=== PATIENT | male | born 1930 | race Caucasian/White ===

== ENCOUNTER 2017-10-30 11:14 | Inpatient (IN) | payer MEDICARE ==
[~2017-10-30] VITALS: Ht 177.8 cm; Wt 76.8 kg
[2017-10-30] VITALS (7 sets, daily range): BP systolic 107–153; BP diastolic 56–114; PULSE 90–128; RESP 18–20; TEMP 97.4–99.2; O2SAT 93–98
[~2017-10-30 11:14] MED LIST: AVOD0.5C PO; CLOP75 PO; HYDR-2768 PO; LISI40TA PO; NOVO7030P2 SQ; ZOCO80TA PO
--- NOTE | 2017-10-30 11:53 | PD ---
HPI Chief Complaint: Neuro Symptoms/ Deficits Time Seen by Provider: 11:34 Travel History International Travel<30 days: No Contact w/Intl Traveler<30days: No Traveled to known affect area: No History of Present Illness HPI 87-year-old male that presents to the ED for evaluation of slurred speech, bearing to the left and weakness to his lower feet from the waist down since he woke up this morning around 830. Per caregiver patient went to bed normal yesterday and today he woke up like this. His been more lethargic and weak than usual. He has a history of osteomyelitis with a wound to his left foot and taking chronically antibiotics. He also takes Eliquis for cardiac conditions. He denies hitting his head or falling but per caregiver they are not sure as he been continue to bear to his left side and the believe that he might have fallen as he does have some bruising to his right side of his face. Patient himself states having only weakness to his lower legs. No history of CVA in the past. No fevers chills or sweats. No abdominal pain. No nausea or vomiting. Patient has been compliant with his medications. Caregiver is concerned the patient may be taking more of his hydrocodone and might be causing some of the symptoms. 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 Patient denies any headache. No blurry vision. His main concern is the lower leg numbness and weakness which of my evaluation seems to be just below the knee. Per caregiver patient is DNR. Patient does have a history of diabetes and hypertension and takes medications for both. Caregiver brought multiple medications. Apparently [facility] was contacted but the customer care team coach and patient prefered that the patient come here on private vehicle. PFSH Past Medical History Hx Anticoagulant Therapy: Yes (ELIQUIS) Cancer: No Cardiovascular Problems: Yes (CARDIOMYOPATHY, CHF, HTN) High Cholesterol: Yes COPD: Yes Diabetes: Yes (TYPE 2) Patient Takes Glucophage: No Glaucoma: No Hepatitis: No Hiatal Hernia: No Hypertension: Yes Respiratory: Yes (COPD) Thyroid Disease: No Past Surgical History Abdominal Surgery: Yes Cardiac Surgery: Yes (STENT) Cholecystectomy: Yes Ear Surgery: No Endocrine Surgery: No Eye Surgery: Yes Genitourinary Surgery: No Gynecologic Surgery: No Neurologic Surgery: No Oral Surgery: Yes Pacemaker: No Thoracic Surgery: No Other Surgery: Yes Social History Alcohol Use: No Tobacco Use: No Substance Use: No Allergies-Medications (Allergen,Severity, Reaction): Coded Allergies: No Known Allergies (Verified , 06/23/15) Reported Meds & Prescriptions Reported Meds & Active Scripts Active Review of Systems Except as stated in HPI: all other systems reviewed are Neg Physical Exam Narrative GENERAL: SKIN: Warm and dry. HEAD: Atraumatic. Normocephalic. EYES: Pupils equal and round 4 mm reactive to light and accommodation. No scleral icterus. No injection or drainage. ENT: No nasal bleeding or discharge. Mucous membranes pink and moist. Tongue is midline. No uvula deviation. NECK: Trachea midline. No JVD. CARDIOVASCULAR: Regular rate and rhythm. No murmurs, S3, S4. RESPIRATORY: No accessory muscle use. Clear to auscultation. Breath sounds equal bilaterally. GASTROINTESTINAL: Abdomen soft, non-tender, nondistended. Hepatic and splenic margins not palpable. MUSCULOSKELETAL: Extremities without clubbing, cyanosis, or edema. No obvious deformities. Full range of motion of the upper and lower extremities with exception of the feet. Patient cannot dorsiflex or plantarflex the feet bilaterally. Patient does have multiple surgical wounds to the feet bilaterally. Patient has a wound VAC on his left foot that appears to be draining fluid. No obvious lumbar, thoracic, cervical spine tenderness to palpation. Patient able to move the back with no sign of deformity. Patient able to have normal sensation on the tib-fib bilaterally. NEUROLOGICAL: Awake and alert. No obvious cranial nerve deficits. Motor grossly within normal limits. Five out of 5 muscle strength in the arms and legs. Normal speech. PSYCHIATRIC: Appropriate mood and affect; insight and judgment normal. Data Data Last Documented VS Vital Signs Date Time Temp Pulse Resp B/P (MAP) Pulse Ox O2 Delivery O2 Flow Rate FiO2 10/30/17 11:34 115 10/30/17 11:17 97.4 20 112/56 (74) 94 Orders Orders Complete Blood Count With Diff (10/30/17 11:35) Comprehensive Metabolic Panel (10/30/17 11:35) Ckmb (Isoenzyme) Profile (10/30/17 11:35) Troponin I (10/30/17 11:35) Prothrombin Time / Inr (Pt) (10/30/17 11:35) Act Partial Throm Time (Ptt) (10/30/17 11:35) Blood Culture (10/30/17 11:35) Urinalysis - C+S If Indicated (10/30/17 11:35) Magnesium (Mg) (10/30/17 11:35) Thyroid Stimulating Hormone (10/30/17 11:35) Chest, Single Ap (10/30/17 11:35) Ct Brain W/O Iv Contrast(Rout) (10/30/17 11:35) Iv Access Insert/Monitor (10/30/17 11:35) Ecg Monitoring (10/30/17 11:35) Oximetry (10/30/17 11:35) Lactic Acid Sepsis Protocol (10/30/17 11:36) Sodium Chlor 0.9% 1000 Ml Inj (Ns 1000 M (10/30/17 12:45) CKMB (10/30/17 11:45) CKMB% (10/30/17 11:45) Electrocardiogram (10/30/17 ) Ct Lumb Spine W/O Contrast (10/30/17 ) Aspirin (Aspirin) (10/30/17 13:00) Mra Brain W/O Contrast (Cow) (10/30/17 12:48) Mri Brain W/O Contrast (10/30/17 ) Sodium Chlorid 0.9% 500 Ml Inj (Ns 500 M (10/30/17 13:00) Admit To Inpatient (10/30/17 ) Nih Stroke Scale - Nihss .On admission and discharge (10/30/17 12:53) Neuro Checks Q4H (10/30/17 12:53) Notify Dr: Other (10/30/17 12:53) Consult Pt Eval & Treat (10/30/17 12:53) Case Management Consult (10/30/17 ) Activity Bed Rest (10/30/17 12:53) Nursing Bedside Swallow Assess .ONCE (10/30/17 12:53) Scd Bilateral/Knee High AARON.QSHIFT (10/30/17 12:53) Hemoglobin (Hgb) A1c (10/30/17 12:53) Lipid Profile (10/31/17 06:00) Us Carotid Arteries Comp Bilat (10/30/17 ) Holter Monitor Recording (10/30/17 ) Echo 2d Comp With Doppler (10/30/17 ) Resp Oxygen Nc Stroke (10/30/17 ) ^ Hold Medication (10/30/17 12:53) Sodium Chloride 0.9% Flush (Ns Flush) (10/30/17 21:00) Sodium Chloride 0.9% Flush (Ns Flush) (10/30/17 13:00) Enalaprilat Inj (Vasotec Inj) (10/30/17 13:00) Labetalol Inj (Trandate Inj) (10/30/17 13:00) Womens Volleyball Coach / Telemetry AARON.Q8H (10/30/17 12:53) Consult Stroke Navigator (10/30/17 ) Scd Bilateral/Knee High AARON.BID (10/30/17 12:53) Inpatient Certification (10/30/17 ) Sodium Chlor 0.9% 1000 Ml Inj (Ns 1000 M (10/30/17 13:00) Nitroglycerin Sl (Nitrostat Sl) (10/30/17 13:00) Creatine Kinase (Cpk) (10/30/17 18:00) Creatine Kinase (Cpk) (10/31/17 00:00) Troponin I (10/30/17 18:00) Troponin I (10/31/17 00:00) Magnesium (Mg) (10/30/17 12:58) Electrocardiogram (10/30/17 18:00) Electrocardiogram (10/31/17 00:00) Code Status (10/30/17 13:11) Admit Order (Ed Use Only) (10/30/17 13:12) Labs Laboratory Tests Test 10/30/17 11:45 10/30/17 12:50 White Blood Count 14.8 TH/MM3 Red Blood Count 3.70 MIL/MM3 Hemoglobin 9.5 GM/DL Hematocrit 29.6 % Mean Corpuscular Volume 80.0 FL Mean Corpuscular Hemoglobin 25.7 PG Mean Corpuscular Hemoglobin Concent 32.1 % Red Cell Distribution Width 16.7 % Platelet Count 322 TH/MM3 Mean Platelet Volume 7.3 FL Neutrophils (%) (Auto) 91.0 % Lymphocytes (%) (Auto) 3.4 % Monocytes (%) (Auto) 5.4 % Eosinophils (%) (Auto) 0.1 % Basophils (%) (Auto) 0.1 % Neutrophils # (Auto) 13.5 TH/MM3 Lymphocytes # (Auto) 0.5 TH/MM3 Monocytes # (Auto) 0.8 TH/MM3 Eosinophils # (Auto) 0.0 TH/MM3 Basophils # (Auto) 0.0 TH/MM3 CBC Comment DIFF FINAL Differential Comment Prothrombin Time 11.6 SEC Prothromb Time International Ratio 1.1 RATIO Activated Partial Thromboplast Time 28.2 SEC Blood Urea Nitrogen 40 MG/DL Creatinine 2.50 MG/DL Random Glucose 235 MG/DL Total Protein 6.5 GM/DL Albumin 2.7 GM/DL Calcium Level 9.3 MG/DL Magnesium Level 2.6 MG/DL Alkaline Phosphatase 138 U/L Aspartate Amino Transf (AST/SGOT) 36 U/L Alanine Aminotransferase (ALT/SGPT) 30 U/L Total Bilirubin 0.2 MG/DL Sodium Level 133 MEQ/L Potassium Level 5.3 MEQ/L Chloride Level 98 MEQ/L Carbon Dioxide Level 25.7 MEQ/L Anion Gap 9 MEQ/L Estimat Glomerular Filtration Rate 25 ML/MIN Total Creatine Kinase 143 U/L Creatine Kinase MB 5.0 NG/ML Troponin I 2.07 NG/ML Thyroid Stimulating Hormone 3rd Gen 3.400 uIU/ML Lactic Acid Level 2.9 mmol/L MDM Medical Decision Making Medical Screen Exam Complete: Yes Emergency Medical Condition: Yes Medical Record Reviewed: Yes Interpretation(s) CBC & BMP Diagram 10/30/17 11:45 Total Protein 6.5, Albumin 2.7 L, Calcium Level 9.3, Magnesium Level 2.6 H, Alkaline Phosphatase 138 H, Aspartate Amino Transf (AST/SGOT) 36, Alanine Aminotransferase (ALT/SGPT) 30, Total Bilirubin 0.2 troponin of 2 CK WNL Last Impressions Head CT 10/30/17 1135 Signed Impressions: CONCLUSION: 1. Stable CT scan of the brain compared to 2016. 2. No acute intracranial hemorrhage. EKG show atrial fibrillation with RVR in the 129's. Differential Diagnosis CVA versus ACS versus brain bleed versus fall versus weakness versus neuropathy versus sepsis versus metastasis of cancer Narrative Course 87-year-old male that presents to the ED for evaluation of weakness to his lower legs, slurred speech and veering to the left. Patient was properly examined and was found to have signs and symptoms of unclear etiology but definetly concerning for possible CVA. Timing is unknown as patient woke up with the symptoms. There is some clear patient did fail or not as patient does have some bruising to his right side of the face. Patient has no history of CVA in the past but does take Eliquis and has comorbidities for CVA including cancer, diabetes, hypertension and high cholesterol. At this time case was discussed my attending Dr. Bolden who does not recommend calling stroke alert but wants full CVA work up. Labs and imaging did not show any sign of acute CVA but did show what appears to be acute kidney disease, elevated troponin what appears to be A. fib with slight RVR in the 120s of heart rate. My attending himself evaluated the patient at this time recommends only aspirin. Patient already taken Eliquis. He recommends admission for further evaluation and likely MRI and TIA/stroke workup. This was discussed with the caregiver and patient and they both agree with admission. My attending discussed the case with customer care team coach and patient and believes symptoms might be more related to his new prescription of hydrocodone. Patient is neurovascularly intact in our evaluation other than for A. fib. Dr Reis agrees to admission. Diagnosis Primary Impression: Weakness Additional Impressions: Troponin level elevated Acute kidney injury Admitting Information Admitting Physician Requests: Admit Gonzalo Mg October 30, 2017 11:53
[2017-10-30 11:59] LABS: AUTOMATED NEUTROPHIL # 13.5 TH/MM3 (1.8-7.7); BASOPHIL % 0.1 % (0.0-2.0); EOSINOPHIL % 0.1 % (0.0-4.0); HEMATOCRIT 29.6 % (39.0-51.0); HEMOGLOBIN 9.5 GM/DL (13.0-17.0); LYMPH % 3.4 % (9.0-44.0); LYMPHOCYTE # 0.5 TH/MM3 (1.0-4.8); MEAN CORPUSCULAR HEMOGLOBIN 25.7 PG (27.0-34.0); MEAN CORPUSCULAR HGB CONC 32.1 % (32.0-36.0); MEAN PLATELET VOLUME 7.3 FL (7.0-11.0); MONO % 5.4 % (0.0-8.0); MONOCYTE # 0.8 TH/MM3 (0-0.9); PLATELET COUNT 322 TH/MM3 (150-450); RED CELL DISTRIBUTION WIDTH 16.7 % (11.6-17.2); WHITE BLOOD COUNT 14.8 TH/MM3 (4.0-11.0)
--- NOTE | 2017-10-30 12:08 | RADRPT ---
EXAM DATE: 10/30/2017 11:56 AM EDT AGE/SEX: 87 years / Male INDICATIONS: Weakness, altered mental status. CLINICAL DATA: This is the patient's initial encounter. Patient reports that signs and symptoms have been present for 1 day and indicates a pain score of 0/10. MEDICAL/SURGICAL HISTORY: Cardiovascular disease. Hypertension. Chronic obstructive pulmonary dis ease. Diabetes. . Coronary stents. RADIATION DOSE: 38.76 CTDI (mGy) COMPARISON: [facility], CT BRAIN W/O CONTRAST, 06/23/2015. . TECHNIQUE: CT of the head without contrast. Using automated exposure control and adjustment of the mA and/or kV according to patient size, radiation dose was kept as low as reasonably achievable to ob tain optimal diagnostic quality images. FINDINGS: Cerebrum: The ventricles are normal for age. There is stable bilateral cortical atrophy. No evidence of midline shift, mass lesion, hemorrhage or acute infarction. No extraaxial fluid collections are seen. Posterior Fossa: The cerebellum and brainstem are intact. The 4th ventricle is midline. The cerebe llopontine angle is unremarkable. Extracranial: The visualized portion of the orbits is intact. Skull: The calvaria is intact. No evidence of skull fracture. CONCLUSION: 1. Stable CT scan of the brain compared to 2016. 2. No acute intracranial hemorrhage. Electronically signed by: Roger Esquivel MD 10/30/2017 12:06 PM EDT
[2017-10-30 12:13] LABS: INTERNATIONAL NORMALIZED RATIO 1.1 RATIO; PROTHROMBIN TIME - PATIENT 11.6 SEC (9.8-11.6)
[2017-10-30 12:27] LABS: ALBUMIN 2.7 GM/DL (3.4-5.0); AST (GOT) 36 U/L (15-37); BICARBONATE 25.7 MEQ/L (21.0-32.0); BLOOD UREA NITROGEN 40 MG/DL (7-18); CALCIUM 9.3 MG/DL (8.5-10.1); CHLORIDE 98 MEQ/L (98-107); GLOMERULAR FILTRATION RATE 25 ML/MIN (>89); GLUCOSE,RANDOM 235 MG/DL (74-106); MAGNESIUM 2.6 MG/DL (1.5-2.5); SODIUM (NA) 133 MEQ/L (136-145)
[2017-10-30 12:38] LABS: ALKALINE PHOSPHATASE 138 U/L (45-117); ALT (GPT) 30 U/L (12-78); TOTAL BILIRUBIN ADULT 0.2 MG/DL (0.2-1.0); TOTAL PROTEIN 6.5 GM/DL (6.4-8.2)
[2017-10-30 12:40] LABS: TROPONIN I 2.07 NG/ML (0.02-0.05)
[2017-10-30] MEDS: SODIUM CHLOR 0.9% 1000 ML INJ 1,000 ML IV SCH ×3 (12:45→22:45)
--- NOTE | 2017-10-30 12:52 | RADRPT ---
EXAM DATE: 10/30/2017 12:34 PM EDT AGE/SEX: 87 years / Male INDICATIONS: Syncope CLINICAL DATA: This is the patient's initial encounter. Patient reports that signs and symptoms have been present for 1 day and indicates a pain score of 0/10. MEDICAL/SURGICAL HISTORY: Vertigo. None. COMPARISON: No prior [facility] exams available for comparison. FINDINGS: There is a platelike infiltrate in the right lower lung along with elevation of the right hemidiaphra gm. Otherwise, the lungs are grossly clear. No definite pleural effusions or pulmonary edema. The hea rt size is within normal limits. The bony structures are grossly intact. There are surgical clips in the right upper quadrant. CONCLUSION: 1. Platelike infiltrate in the right lower lung suggestive of atelectasis. 2. Nonspecific Elevation of the right hemidiaphragm. Electronically signed by: Roger Esquivel MD 10/30/2017 12:50 PM EDT
[2017-10-30] MEDS ORDERED: SODIUM CHLORID 0.9% 500 ML INJ 500 ML IV ONE (13:00)
[2017-10-30] MEDS ORDERED: NITROGLYCERIN 0.4 MG SL 25 TABS/BTL SL PRN (13:00)
[2017-10-30] MEDS ORDERED: ASPIRIN 325 MG TAB PO ONE (13:00)
[2017-10-30] MEDS ORDERED: ENALAPRILAT 1.25 MG/ML VIAL IV PUSH PRN (13:00)
[2017-10-30] MEDS ORDERED: LABETALOL HCL 100 MG/20 ML VIAL IV PUSH PRN (13:00)
[2017-10-30] MEDS ORDERED: SODIUM CHLORIDE 0.9% FLUSH 10 ML FLUSH IV FLUSH PRN (13:00)
[2017-10-30 13:18] LABS: LACTIC ACID SEPSIS PROTOCOL 2.9 mmol/L (0.4-2.0)
--- NOTE | 2017-10-30 13:56 | RADRPT ---
EXAM DATE: 10/30/2017 1:50 PM EDT AGE/SEX: 87 years / Male INDICATIONS: . Bilateral lower extremity weakness. CLINICAL DATA: This is the patient's initial encounter. Patient reports that signs and symptoms have been present for 1 day and indicates a pain score of 0/10. MEDICAL/SURGICAL HISTORY: Chronic obstructive pulmonary disease. Diabetes mellitus type II. H ypertension. Coronary artery stent. Cholecystectomy. Left foot toe amputations. COMPARISON: CT brain 10/30/2017. TECHNIQUE: Multiplanar, multisequence examination of the brain was performed without contrast. FINDINGS: Cerebrum: Atrophy. The ventricles are normal for age. No evidence of midline shift, mass lesion, he morrhage or acute infarction. No extraaxial fluid collections are seen. The pituitary gland and sup rasellar cistern are normal in configuration. White Matter: A few small scattered foci of high FLAIR signal abnormality involving the periventricu lar white matter of both cerebral hemispheres.. Posterior Fossa: The cerebellum and brainstem are intact. The 4th ventricle is midline. The cerebel lopontine angle is unremarkable. The cerebellar tonsils are normal in position. Diffusion Imaging: No focal areas of restricted diffusion are seen. No evidence of acute infarction . Extracranial: The visualized portions of the orbits and paranasal sinuses are unremarkable. Small mu cous retention cysts within the maxillary sinuses bilaterally. CONCLUSION: 1. No acute intracranial abnormality. 2. Atrophy. 3. Mild chronic small vessel ischemic change. Electronically signed by: Christopher Krause MD 10/30/2017 1:55 PM EDT
[2017-10-30] MEDS ORDERED: METF500T PO (14:04)
[2017-10-30] MEDS ORDERED: ESSE250T PO (14:04)
[2017-10-30] MEDS ORDERED: HYDR-3516 PO (14:04)
[2017-10-30] MEDS ORDERED: ASPI81TA16 PO (14:04)
[2017-10-30] MEDS ORDERED: MELA10TA4 PO (14:04)
[2017-10-30] MEDS ORDERED: APIX5TAB PO (14:04)
[2017-10-30] MEDS ORDERED: PROS5TAB PO (14:04)
[2017-10-30] MEDS ORDERED: CENTCHW3 PO (14:04)
[2017-10-30] MEDS ORDERED: AMAR2TAB PO (14:04)
[2017-10-30] MEDS ORDERED: GABA300C5 PO (14:04)
[2017-10-30] MEDS ORDERED: STOO100T PO (14:04)
[2017-10-30] MEDS ORDERED: LISI10TA3 PO (14:04)
[2017-10-30] MEDS ORDERED: CHEL50TA PO (14:04)
[2017-10-30] MEDS ORDERED: BACT800T5 PO (14:04)
[2017-10-30] MEDS ORDERED: METO100T PO (14:04)
[2017-10-30] MEDS ORDERED: CHRO200C PO (14:04)
[2017-10-30] MEDS ORDERED: RANI150T PO (14:04)
[2017-10-30] MEDS ORDERED: VITA100018 PO (14:04)
[2017-10-30] MEDS ORDERED: ISOS30TA3 PO (14:04)
[2017-10-30] MEDS ORDERED: PLAV75TA29 PO (14:04)
[2017-10-30] MEDS ORDERED: TAMS0.4C4 PO (14:04)
[2017-10-30] MEDS ORDERED: MULTTAB62 PO (14:04)
[2017-10-30] MEDS ORDERED: GABA100C4 PO (14:04)
--- NOTE | 2017-10-30 14:25 | HHI.HP ---
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 Patient presents to the ER with his caregiver Sammi Miranda due to concerns of bilateral lower extremity weakness, slurred speech which has resolved. Patient's complaint at this time is feeling fatigued with bilateral lower extremity weakness. Per caregiver patient went to bed normal yesterday and today he woke up with lower extremity weakness and slurred speech. He also appears to be more lethargic than usual. Patient has a history of osteomyelitis with a wound and wound vac to his left foot and taking chronically antibiotics, Bactrim. Patient was started on [place] for pain yesterday. He also takes Eliquis for atrial fibrillation/flutter. Per caregiver patient is DNR. Patient denies chest pain shortness of breath nausea vomiting diarrhea constipation fevers or chills. Review of Systems Constitutional: COMPLAINS OF: Fatigue Eyes: DENIES: Blurred vision, Diplopia, Vision loss Respiratory: DENIES: Cough, Sputum production, Shortness of breath Cardiovascular: DENIES: Chest pain, Palpitations, Dyspnea on Exertion Gastrointestinal: DENIES: Abdominal pain, Constipation, Diarrhea, Nausea, Vomiting Neurologic: DENIES: Headache, Seizures, Speech Problems Psychiatric: DENIES: Anxiety, Confusion, Depression Past Family Social History Past Medical History arthritis, atrial fibrillation/flutter on Eliquis, BPH, CAD status post cardiac stent, chronic kidney disease stage III, 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 currently has a wound VAC in place, chronic nonhealing wound right foot, diabetes mellitus, esophageal ulcer , GERD, hyperlipidemia and peripheral vascular disease Past Surgical History Cataract surgery, cardiac catheterization with stent placement, lithotripsy, EGD , tonsillectomy, resection left foot with wound VAC placement Reported Medications Ranitidine (Ranitidine HCl) 150 Mg Tab 150 Mg PO DAILY Metformin (Metformin HCl) 500 Mg Tab 500 Mg PO BID Zinc (Zinc Gluconate) 50 Mg Tab 50 Mg PO DAILY Tamsulosin (Tamsulosin HCl) 0.4 Mg Cap 0.4 Mg PO DAILY Metoprolol Tartrate 100 Mg Tab 50 Mg PO BID Isosorbide Mononitrate ER (Isosorbide Mononitrate) 30 Mg [place] 30 Mg PO DAILY Magnesium 250 Mg Tab 250 Mg PO DAILY Chromium Picolinate 200 Mcg Cap 200 Mg PO DAILY Eliquis (Apixaban) 5 Mg Tab 5 Mg PO BID Lisinopril 10 Mg Tab 10 Mg PO DAILY Stool Softener (Docusate Sodium) 100 Mg Tab 100 Mg PO DAILY PRN Multi-Vitamin/Minerals (Multiple Vitamins W/ Minerals) 1 Tab Tab 1 Tab PO DAILY Centrum Silver (Multiple Vitamins W/ Minerals) 400 Mcg-250 Mcg Chw 1 Tab PO DAILY Aspirin Adult Low Strength (Aspirin) 81 Mg Tabdr 81 Mg PO DAILY Amaryl (Glimepiride) 2 Mg Tab 2 Mg PO DAILY Gabapentin 100 Mg Cap 200 Mg PO TID Gabapentin 300 Mg Cap 300 Mg PO HS Hydrocodone-Acetaminophen 5-325 mg Tab 1 Tab PO Q6H PRN Proscar (Finasteride) 5 Mg Tab 5 Mg PO DAILY Do not crush. Melatonin 10 Mg Tablet 10 Mg PO HS PRN Bactrim DS (Sulfamethoxazole-Trimethoprim) 800-160 Mg Tab 1 Tab PO BID 10 Days Vitamin D3 (Cholecalciferol) 1,000 Unit Tab 2,000 Units PO DAILY Plavix (Clopidogrel Bisulfate) 75 Mg Tab 75 Mg PO DAILY Allergies: Coded Allergies: No Known Allergies (Verified , 06/23/15) Family History Reviewed and noncontributory Social History Has caregivers during the day Denies EtOH use tobacco use or illicit drug use Physical Exam Vital Signs Vital Signs Date Time Temp Pulse Resp B/P (MAP) Pulse Ox O2 Delivery O2 Flow Rate FiO2 10/30/17 11:34 115 10/30/17 11:17 97.4 90 20 112/56 (74) 94 Physical Exam GENERAL: This is an elderly 87-year-old male patient, in no apparent distress. SKIN: small Foul-smelling wound right foot, wound VAC left foot HEAD: Atraumatic. Normocephalic. No temporal or scalp tenderness. EYES: Extraocular motions intact. No scleral icterus. No injection or drainage. CARDIOVASCULAR: Irregularly irregular RESPIRATORY: Clear to auscultation. Breath sounds equal bilaterally. GASTROINTESTINAL: Abdomen soft, non-tender, nondistended. MUSCULOSKELETAL: 1+ bilateral lower extremity pitting edema NEUROLOGICAL: Awake and alert x 4. No focal deficits appreciated. Motor and sensory grossly within normal limits. Bilateral lower extremity weakness 3-4 out of 5. Normal speech. Laboratory Laboratory Tests Test 10/30/17 11:45 10/30/17 12:50 White Blood Count 14.8 Red Blood Count 3.70 Hemoglobin 9.5 Hematocrit 29.6 Mean Corpuscular Volume 80.0 Mean Corpuscular Hemoglobin 25.7 Mean Corpuscular Hemoglobin Concent 32.1 Red Cell Distribution Width 16.7 Platelet Count 322 Mean Platelet Volume 7.3 Neutrophils (%) (Auto) 91.0 Lymphocytes (%) (Auto) 3.4 Monocytes (%) (Auto) 5.4 Eosinophils (%) (Auto) 0.1 Basophils (%) (Auto) 0.1 Neutrophils # (Auto) 13.5 Lymphocytes # (Auto) 0.5 Monocytes # (Auto) 0.8 Eosinophils # (Auto) 0.0 Basophils # (Auto) 0.0 CBC Comment DIFF FINAL Differential Comment Prothrombin Time 11.6 Prothromb Time International Ratio 1.1 Activated Partial Thromboplast Time 28.2 Blood Urea Nitrogen 40 Creatinine 2.50 Random Glucose 235 Total Protein 6.5 Albumin 2.7 Calcium Level 9.3 Magnesium Level 2.6 Alkaline Phosphatase 138 Aspartate Amino Transf (AST/SGOT) 36 Alanine Aminotransferase (ALT/SGPT) 30 Total Bilirubin 0.2 Sodium Level 133 Potassium Level 5.3 Chloride Level 98 Carbon Dioxide Level 25.7 Anion Gap 9 Estimat Glomerular Filtration Rate 25 Total Creatine Kinase 143 Creatine Kinase MB 5.0 Troponin I 2.07 Thyroid Stimulating Hormone 3rd Gen 3.400 Lactic Acid Level 2.9 Date/Time Source Procedure Growth Status 10/30/17 12:05 Blood Peripheral Aerobic Blood Culture Pending Received 10/30/17 12:05 Blood Peripheral Anaerobic Blood Culture Pending Received Result Diagram: 10/30/17 1145 10/30/17 1145 Imaging Last Impressions Head CT 10/30/17 1135 Signed Impressions: CONCLUSION: 1. Stable CT scan of the brain compared to 2016. 2. No acute intracranial hemorrhage. Chest X-Ray 10/30/17 1135 Signed Impressions: CONCLUSION: 1. Platelike infiltrate in the right lower lung suggestive of atelectasis. 2. Nonspecific Elevation of the right hemidiaphragm. Brain MRI 10/30/17 0000 Signed Impressions: CONCLUSION: 1. No acute intracranial abnormality. 2. Atrophy. 3. Mild chronic small vessel ischemic change. Caprini VTE Risk Assessment Caprini VTE Risk Assessment: Mod/High Risk (score >= 2) Caprini Risk Assessment Model Point Value = 1 Point Value = 2 Point Value = 3 Point Value = 5 Age 41-60 Minor surgery BMI > 25 kg/m2 Swollen legs Varicose veins or History of unexplained or recurrent spontaneous Oral contraceptives or hormone replacement Sepsis (< 1 month) Serious lung disease, including pneumonia (< 1 month) Abnormal pulmonary function Acute myocardial infarction Congestive heart failure (< 1 month) History of inflammatory bowel disease Medical patient at bed rest Age 61-74 Arthroscopic surgery Major open surgery (> 45 min) Laparoscopic surgery (> 45 min) Malignancy Confined to bed (> 72 hours) Immobilizing plaster cast Central venous access Age >= 75 History of VTE Family history of VTE Factor V Leiden Prothrombin [id number] Lupus anticoagulant Anticardiolipin antibodies Elevated serum homocysteine Heparin-induced thrombocytopenia Other congenital or acquired thrombophilia Stroke (< 1 month) Elective arthroplasty Hip, pelvis, or leg fracture Acute spinal cord injury (< 1 month) Prophylaxis Regimen Total Risk Factor Score Risk Level Prophylaxis Regimen 0-1 Low Early ambulation 2 Moderate Order ONE of the following: *Sequential Compression Device (SCD) *Heparin 5000 units SQ BID 3-4 Higher Order ONE of the following medications: *Heparin 5000 units SQ TID *Enoxaparin/Lovenox 40 mg SQ daily (WT < 150 kg, CrCl > 30 mL/min) *Enoxaparin/Lovenox 30 mg SQ daily (WT < 150 kg, CrCl > 10-29 mL/min) *Enoxaparin/Lovenox 30 mg SQ BID (WT < 150 kg, CrCl > 30 mL/min) AND/OR *Sequential Compression Device (SCD) 5 or more Highest Order ONE of the following medications: *Heparin 5000 units SQ TID (Preferred with Epidurals) *Enoxaparin/Lovenox 40 mg SQ daily (WT < 150 kg, CrCl > 30 mL/min) *Enoxaparin/Lovenox 30 mg SQ daily (WT < 150 kg, CrCl > 10-29 mL/min) *Enoxaparin/Lovenox 30 mg SQ BID (WT < 150 kg, CrCl > 30 mL/min) AND *Sequential Compression Device (SCD) Assessment and Plan Problem List: (1) Weakness ICD Codes: R53.1 - Weakness Status: Acute Plan: This 87-year-old male patient with past medical history which includes arthritis, atrial fibrillation/flutter on Eliquis, BPH, CAD status post cardiac stent, chronic kidney disease stage III, 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 Patient presents to the ER with his caregiver Sammi Miranda due to concerns of bilateral lower extremity weakness, slurred speech which has resolved. -Per caregiver patient is a DNR, I have requested her to bring proof of this -Per caregiver Sammi Chiang she is POA, I have also asked for her to bring proof of this -Patient has bilateral lower extremity edema after starting hydrocodone yesterday -CT head reviewed and reveals stable CT of the brain compared to 2006. No acute intracranial hemorrhage -MRI of the brain reviewed and reveals no acute intracranial abnormality. Atrophy. Mild chronic small vessel ischemic changes. -Consult physical therapy (2) Acute kidney injury ICD Codes: N17.9 - Acute kidney failure, unspecified Status: Acute Plan: Patient with chronic kidney disease stage III On admission patient's BUN 40, creatinine 2.5, estimated GFR 25 IVF recheck BMP in AM avoid nephrotoxic agents (3) Troponin level elevated ICD Codes: R74.8 - Abnormal levels of other serum enzymes Status: Acute Plan: Patient has history of CAD with cardiac stent Initial troponin 2.[address] segment depression which appears new compared to prior EKGs reviewed from 2016 Telemetry shows Afib with RVR. Last SBP 112. Pt refuses any aggressive Cardiac w/u. Pt states that he a DNR. Pt requests hospice consult. (4) Atrial fibrillation/flutter Plan: Patient in A Fib RVR with hypotension and ROBERTO Digoxin 0.5 MG IV x 1 Dig level in AM (5) BPH (benign prostatic hyperplasia) ICD Codes: N40.0 - Benign prostatic hyperplasia without lower urinary tract symptoms Plan: Hold home medications due to hypotension (6) Diabetes mellitus ICD Codes: E11.9 - Type 2 diabetes mellitus without complications Plan: Patient on Metformin and glimepiride at home will hold both due to ROBERTO Patient expresses desire to be comfort care only Hospice consulted will not order accu checks at this time (7) Leukocytosis ICD Codes: D72.829 - Elevated white blood cell count, unspecified Plan: On admission WBC 14.8 LA 2.9 CXR Shows Platelike infiltrate in the right lower lobe suggestive of atelectasis Patient has wound vac left lower extremity and nonhealing wound which is foul smelling RLE Will start Zosyn IVF recheck CBC in AM Assessment and Plan Patient examined. Assessment and plan formulated with Mara Trevino PA-C. I agree with the above. Pt in obvious decline. Pt does NOT want aggressive care. Pt states that he a DNR. Pt c/o generalized weakness. Pt denies focal weakness. Pt is A&Ox3. MRI brain (10/30) --> no acute findings MRA brain (10/30) --> no acute findings Pt requests hospice consult. Will continue IVFs/fluid bolus. Telemetry shows Afib with RVR. Last SBP 110. Give digoxin 0.5mg IV elevated troponin EKG shows diffuse ST segment depression which appears new compared to prior EKGs reviewed from 2016 Pt refuses any aggressive Cardiac w/u. start IV Zosyn morphine prn pain ativan prn anxiety. Physician Certification 2 Midnight Certification Type: Admission for Inpatient Services Order for Inpatient Services The services are ordered in accordance with Medicare regulations or non- Medicare payer requirements, as applicable. In the case of services not specified as inpatient-only, they are appropriately provided as inpatient services in accordance with the 2-midnight benchmark. Estimated LOS (days): 3 days is the estimated time the patient will need to remain in the hospital, assuming treatment plan goals are met and no additional complications. Post-Hospital Plan: Not yet determined Mara Trevino October 30, 2017 14:25 Remi Reis DO October 30, 2017 17:58
--- NOTE | 2017-10-30 14:38 | RADRPT ---
EXAM DATE: 10/30/2017 2:17 PM EDT AGE/SEX: 87 years / Male INDICATIONS: . Bilateral lower extremity weakness. CLINICAL DATA: This is the patient's initial encounter. Patient reports that signs and symptoms have been present for 1 day and indicates a pain score of 0/10. MEDICAL/SURGICAL HISTORY: Hypertension. Diabetes mellitus type II. Chronic obstructive pulmon ani disease. Coronary artery stent. Cholecystectomy. Left foot toe amputations. COMPARISON: None. TECHNIQUE: 3D [id number] MRA was performed. Source images, multiplanar STS MIP, and 3D volum e MIP reconstructions were reviewed. FINDINGS: There is excellent visualization of the major intracranial arteries out to the second-order branch ve ssels. Variant anatomy. Absence of the right A1 segment with a dominant left A1 segment and anterior communicating artery. Scattered atherosclerotic disease seen throughout the intracranial vessels. Hig h-grade stenosis involving the left P1 segment. Moderate stenosis involving the proximal right M1. Mo derate stenoses involving the intracavernous ICA on the right. Mild stenosis involving the intracaver nous ICA on the left. There is no evidence for aneurysm or vascular malformation. CONCLUSION: 1. Diffuse atherosclerotic disease with areas of luminal narrowing as detailed above. Electronically signed by: Christopher Krause MD 10/30/2017 2:36 PM EDT
--- NOTE | 2017-10-30 16:36 | EKG ---
Date Performed: 10/30/2017 Time Performed: 12:47:08 PTAGE: 87 years EKG: ATRIAL FIBRILLATION WITH RAPID VENTRICULAR RESPONSE LOW QRS VOLTAGE IN EXTREMITY LEADS NONS PECIFIC ST & T-WAVE ABNORMALITY ABNORMAL RHYTHM ECG PREVIOUS TRACING : 06/23/2015 16.24 Compared to previous tracing, atrial fibrillation has repla corey Sinus rhythm , heart rate has increased. DOCTOR: Gulshan Drummond Interpretating Date/Time 10/30/2017 16:34:42
[2017-10-30] MEDS ORDERED: DIGOXIN 0.5 MG/2 ML VIAL IV PUSH ONE ×2 (18:00→23:45)
[2017-10-30] MEDS ORDERED: DOCUSATE SODIUM 100 MG CAP PO PRN (18:00)
[2017-10-30] MEDS: PIPERACIL-TAZO 3.375 GM PREMIX 50 ML IV SCH (18:39)
--- NOTE | 2017-10-30 19:13 | EKG ---
Date Performed: 10/30/2017 Time Performed: 17:26:00 PTAGE: 87 years EKG: ATRIAL FIBRILLATION WITH RAPID VENTRICULAR RESPONSE LOW QRS VOLTAGE IN EXTREMITY LEADS ST D EPRESSION, CONSIDER INFERIOR AND LATERAL ISCHEMIA ABNORMAL ECG PREVIOUS TRACING : 10/30/2017 12.47 No change from previous tracing noted. DOCTOR: Gulshan Drummond Interpretating Date/Time 10/30/2017 19:13:13
[2017-10-30] MEDS: SODIUM CHLORIDE 0.9% FLUSH 10 ML FLUSH IV FLUSH SCH (21:00)
[2017-10-30] MEDS: APIXABAN 2.5 MG TABLET PO SCH (21:35)
[2017-10-30 22:05] LABS: MAGNESIUM 2.5 MG/DL (1.5-2.5)
[2017-10-30 22:24] LABS: CALCIUM 8.8 MG/DL (8.5-10.1); CREATININE 2.47 MG/DL (0.60-1.30)
[2017-10-30 22:38] LABS: TROPONIN I 10.7 NG/ML (0.02-0.05)
--- NOTE | 2017-10-30 23:32 | HHI.PR ---
Subjective Remarks Called to see patient for elevated troponin level 7 from earlier level of 2 , patient is DNR with multiple co morbidities and hospice has been consulted ,he is not complaining of any chest pain ,shortness of breath and both patient and hearing care professional just want patient to be comfortable and in no pain. 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 Patient presents to the ER with his caregiver Sammi Miranda due to concerns of bilateral lower extremity weakness, slurred speech which has resolved. Patient' s complaint at this time is feeling fatigued with bilateral lower extremity weakness. Per caregiver patient went to bed normal yesterday and today he woke up with lower extremity weakness and slurred speech. He also appears to be more lethargic than usual. Patient has a history of osteomyelitis with a wound and wound vac will continue comfort measures tonight with hospice consult discussed with nursing. Objective Vitals GENERAL: SKIN: Warm and dry. HEAD: Atraumatic. Normocephalic. EYES: Pupils equal and round. No scleral icterus. No injection or drainage. ENT: No nasal bleeding or discharge. Mucous membranes pink and moist. NECK: Trachea midline. No JVD. CARDIOVASCULAR:Irregular rate and rhythm. RESPIRATORY: No accessory muscle use. Clear to auscultation. Breath sounds equal bilaterally. GASTROINTESTINAL: Abdomen soft, non-tender, nondistended. Hepatic and splenic margins not palpable. MUSCULOSKELETAL: Extremities without clubbing, cyanosis, plus 3 edema. No obvious deformities. NEUROLOGICAL: Awake and alert. No obvious cranial nerve deficits. Motor grossly within normal limits. 3 out of 5 muscle strength in the arms and legs. Normal speech. was slurred yesterday PSYCHIATRIC: Appropriate mood and affect; insight and judgment normal. Vital Signs Date Time Temp Pulse Resp B/P (MAP) Pulse Ox O2 Delivery O2 Flow Rate FiO2 10/30/17 22:52 99.2 121 18 107/67 (80) 98 10/30/17 20:33 98 Nasal Cannula 2.00 10/30/17 17:39 Nasal Cannula 2.00 10/30/17 15:41 98.4 128 20 153/114 (127) 93 10/30/17 14:30 98 Nasal Cannula 2.00 10/30/17 11:34 115 10/30/17 11:17 97.4 90 20 112/56 (74) 94 Result Diagram: 10/30/17 1145 10/30/17 2040 Imaging Last Impressions Head CT 10/30/17 1135 Signed Impressions: CONCLUSION: 1. Stable CT scan of the brain compared to 2016. 2. No acute intracranial hemorrhage. Chest X-Ray 10/30/17 1135 Signed Impressions: CONCLUSION: 1. Platelike infiltrate in the right lower lung suggestive of atelectasis. 2. Nonspecific Elevation of the right hemidiaphragm. Brain MRI 10/30/17 0000 Signed Impressions: CONCLUSION: 1. No acute intracranial abnormality. 2. Atrophy. 3. Mild chronic small vessel ischemic change. 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 Patient presents to the ER with his caregiver Sammi Miranda due to concerns of bilateral lower extremity weakness, slurred speech which has resolved. -Per caregiver patient is a DNR, I have requested her to bring proof of this -Per caregiver Sammi Chiang she is POA, I have also asked for her to bring proof of this -Patient has bilateral lower extremity edema after starting hydrocodone yesterday -CT head reviewed and reveals stable CT of the brain compared to 2006. No acute intracranial hemorrhage -MRI of the brain reviewed and reveals no acute intracranial abnormality. Atrophy. Mild chronic small vessel ischemic changes. -Consult physical therapy (2) Acute kidney injury ICD Codes: N17.9 - Acute kidney failure, unspecified Status: Acute Plan: Patient with chronic kidney disease stage III On admission patient's BUN 40, creatinine 2.5, estimated GFR 25 IVF recheck BMP in AM avoid nephrotoxic agents (3) Troponin level elevated ICD Codes: R74.8 - Abnormal levels of other serum enzymes Status: Acute Plan: Patient has history of CAD with cardiac stent Initial troponin 2.[address] segment depression which appears new compared to prior EKGs reviewed from 2016 Telemetry shows Afib with RVR. Last SBP 112. Pt refuses any aggressive Cardiac w/u. Pt states that he a DNR. Pt requests hospice consult. (4) Atrial fibrillation/flutter Plan: Patient in A Fib RVR with hypotension and ROBERTO Digoxin 0.5 MG IV x 1 Dig level in AM heart rate has gone to 130 will give digoxin prn for any elevation in heart rate as it did help earlier today. (5) BPH (benign prostatic hyperplasia) ICD Codes: N40.0 - Benign prostatic hyperplasia without lower urinary tract symptoms Plan: Hold home medications due to hypotension (6) Diabetes mellitus ICD Codes: E11.9 - Type 2 diabetes mellitus without complications Plan: Patient on Metformin and glimepiride at home will hold both due to ROBERTO Patient expresses desire to be comfort care only Hospice consulted will not order accu checks at this time (7) Leukocytosis ICD Codes: D72.829 - Elevated white blood cell count, unspecified Plan: On admission WBC 14.8 LA 2.9 CXR Shows Platelike infiltrate in the right lower lobe suggestive of atelectasis Patient has wound vac left lower extremity and nonhealing wound which is foul smelling RLE Will start Zosyn IVF recheck CBC in AM Assessment and Plan supportive care hospice consult continue morphine and oxygen as needed Ruiz Pineda MD October 30, 2017 23:32
[2017-10-30] MEDS ORDERED: IBUPROFEN 200 MG TAB PO ONE (23:45)
[2017-10-31] VITALS (9 sets, daily range): BP systolic 99–144; BP diastolic 57–96; PULSE 98–138; RESP 17–20; TEMP 98.1–98.4; O2SAT 97–100
[2017-10-31] MEDS: LORazepam 2 MG/ML VIAL IV PUSH PRN (00:21)
[2017-10-31] MEDS: MORPHINE SULFATE 4 MG/ML INJ IV PUSH PRN ×3 (00:22→23:25)
[2017-10-31] MEDS: PIPERACIL-TAZO 3.375 GM PREMIX 50 ML IV SCH ×3 (01:00→17:10)
[2017-10-31] MEDS: SODIUM CHLOR 0.9% 1000 ML INJ 1,000 ML IV SCH ×5 (01:01→17:18)
[2017-10-31 05:20] LABS: AUTOMATED NEUTROPHIL # 8.7 TH/MM3 (1.8-7.7); BASOPHIL % 0.4 % (0.0-2.0); EOSINOPHIL # 0.1 TH/MM3 (0-0.4); EOSINOPHIL % 0.9 % (0.0-4.0); HEMATOCRIT 26.8 % (39.0-51.0); HEMOGLOBIN 8.8 GM/DL (13.0-17.0); MEAN CELL VOLUME 79.1 FL (80.0-100.0); MEAN CORPUSCULAR HGB CONC 32.9 % (32.0-36.0); MEAN PLATELET VOLUME 7.4 FL (7.0-11.0); MONO % 8.4 % (0.0-8.0); MONOCYTE # 0.9 TH/MM3 (0-0.9); NEUT % 81.3 % (16.0-70.0); PLATELET COUNT 288 TH/MM3 (150-450); RED BLOOD COUNT 3.39 MIL/MM3 (4.50-5.90); RED CELL DISTRIBUTION WIDTH 16.9 % (11.6-17.2); WHITE BLOOD COUNT 10.7 TH/MM3 (4.0-11.0)
[2017-10-31 05:44] LABS: BICARBONATE 24.9 MEQ/L (21.0-32.0); CALCIUM 8.3 MG/DL (8.5-10.1); CREATININE 2.25 MG/DL (0.60-1.30); MAGNESIUM 2.5 MG/DL (1.5-2.5)
[2017-10-31 05:48] LABS: CHOLESTEROL/ HDL RATIO 2.8 RATIO
[2017-10-31 05:54] LABS: TROPONIN I 14.2 NG/ML (0.02-0.05)
--- NOTE | 2017-10-31 08:05 | EKG ---
Date Performed: 10/30/2017 Time Performed: 23:14:30 PTAGE: 87 years EKG: Atrial fibrillation with rapid ventricular response Extensive ST-T changes are nonspecific Baseline artefact Abnormal ECG NO PREVIOUS TRACING DOCTOR: Gulshan Drummond Interpretating Date/Time 10/31/2017 08:04:03
[2017-10-31] MEDS: APIXABAN 2.5 MG TABLET PO SCH ×2 (08:24→20:27)
[2017-10-31] MEDS: ASPIRIN 325 MG TAB PO SCH (08:24)
[2017-10-31] MEDS: CLOPIDOGREL 75 MG TAB PO SCH (08:24)
[2017-10-31] MEDS: ISOSORBIDE MONONITRATE 30 MG CR TAB (IMDUR) PO SCH (08:24)
[2017-10-31] MEDS: FAMOTIDINE 20 MG TAB PO SCH (08:24)
[2017-10-31] MEDS: SODIUM CHLORIDE 0.9% FLUSH 10 ML FLUSH IV FLUSH SCH ×2 (08:25→20:27)
[2017-10-31] MEDS ORDERED: TAMSULOSIN HCL 0.4 MG CAP PO SCH (09:00)
--- NOTE | 2017-10-31 09:25 | HHI.PR ---
Subjective Remarks pt appeared comfortable. says he wants comfort care nothing aggressive Objective Vitals heart irreg lung cta abd s/nt ext left heel wound feet swollen bilaterally 2 toes amputated right foot. Vital Signs Date Time Temp Pulse Resp B/P (MAP) Pulse Ox O2 Delivery O2 Flow Rate FiO2 10/31/17 08:06 98.4 124 18 101/69 (80) 100 10/31/17 08:00 Nasal Cannula 2.00 10/31/17 04:08 122 10/31/17 03:47 98.1 110 18 119/76 (90) 97 10/30/17 23:59 119 10/30/17 22:52 99.2 121 18 107/67 (80) 98 10/30/17 20:33 98 Nasal Cannula 2.00 10/30/17 20:30 Nasal Cannula 2.00 10/30/17 20:12 124 10/30/17 17:39 Nasal Cannula 2.00 10/30/17 15:41 98.4 128 20 153/114 (127) 93 10/30/17 14:30 98 Nasal Cannula 2.00 10/30/17 11:34 115 10/30/17 11:17 97.4 90 20 112/56 (74) 94 Result Diagram: 10/31/17 0340 10/31/17 0340 Imaging Last Impressions Head CT 10/30/17 1135 Signed Impressions: CONCLUSION: 1. Stable CT scan of the brain compared to 2016. 2. No acute intracranial hemorrhage. Chest X-Ray 10/30/17 1135 Signed Impressions: CONCLUSION: 1. Platelike infiltrate in the right lower lung suggestive of atelectasis. 2. Nonspecific Elevation of the right hemidiaphragm. Brain MRI 10/30/17 0000 Signed Impressions: CONCLUSION: 1. No acute intracranial abnormality. 2. Atrophy. 3. Mild chronic small vessel ischemic change. 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 Patient presents to the ER with his caregiver Sammi Miranda due to concerns of bilateral lower extremity weakness, slurred speech which has resolved. -Per caregiver patient is a DNR -Per caregiver Sammi Chiang she is POA, -Patient has bilateral lower extremity edema after starting hydrocodone yesterday -CT head reviewed and reveals stable CT of the brain compared to 2006. No acute intracranial hemorrhage -MRI of the brain reviewed and reveals no acute intracranial abnormality. Atrophy. Mild chronic small vessel ischemic changes. 1) ACS 2) A/CKD 3 3) chronic heel wounds/osteo. wound vac left 4) afib/flutter rvr 5) cad 6) dm 2 Patient and caregiver expressed with for dnr, no cardiac w/up, comfort care and hospice consult will await hospice eval today and [facility] d/c cont current rx for now. (2) Acute kidney injury ICD Codes: N17.9 - Acute kidney failure, unspecified Status: Acute (3) Atrial fibrillation/flutter Status: Acute (4) BPH (benign prostatic hyperplasia) ICD Codes: N40.0 - Benign prostatic hyperplasia without lower urinary tract symptoms Status: Chronic Plan: Hold home medications due to hypotension (5) Diabetes mellitus ICD Codes: E11.9 - Type 2 diabetes mellitus without complications Status: Chronic (6) Leukocytosis ICD Codes: D72.829 - Elevated white blood cell count, unspecified Plan: On admission WBC 14.8 LA 2.9 CXR Shows Platelike infiltrate in the right lower lobe suggestive of atelectasis Patient has wound vac left lower extremity and nonhealing wound which is foul smelling RLE Will start Zosyn IVF recheck CBC in AM Nicolas Guerra MD October 31, 2017 09:25
[2017-10-31] MEDS ORDERED: PNEUMOCOCCAL POLYVALENT INJ 25 MCG/0.5 ML SYR IM ONE (10:00)
--- NOTE | 2017-10-31 12:12 | RADRPT ---
EXAM DATE: 10/31/2017 11:51 AM EDT AGE/SEX: 87 years / Male INDICATIONS: Cerebrovascular accident. CLINICAL DATA: This is the patient's initial encounter. Patient reports that signs and symptoms have been present for 1 day and indicates a pain score of 0/10. MEDICAL/SURGICAL HISTORY: . COPD. Diabetic. Hypertension. . Coronary stent. Cholecystectomy . Left foot/toe amputation. COMPARISON: No prior [facility] exams available for comparison. VELOCITY PARAMETERS: ICA/CCA Ratio: Right 1.5 , Left 1.7 ICA: Right 122 cm/sec, Left 117 cm/sec CCA: Right 83 cm/sec, Left 68 cm/sec ECA: Right 163 cm/sec, Left 44 cm/sec Vertebral: Right 48 cm/sec antegrade, Left 53 cm/sec antegrade FINDINGS: Right Carotid: No significant stenosis is visualized. Moderate plaque. The waveforms are within nor mal limits. Left Carotid: No significant stenosis is visualized. Moderate plaque. The waveforms are within laila l limits. Other: None. CONCLUSION: Moderate plaque without hemodynamic significant stenosis in either carotid artery. Electronically signed by: Bayron Kunz MD 10/31/2017 12:11 PM EDT
--- NOTE | 2017-10-31 15:43 | HHI.DCPOC ---
Discharge Care Plan Diagnosis: (1) Weakness (2) Troponin level elevated (3) Acute kidney injury (4) Leukocytosis (5) Diabetes mellitus (6) Atrial fibrillation/flutter (7) BPH (benign prostatic hyperplasia) Goals to Promote Your Health * To prevent worsening of your condition and complications * To maintain your health at the optimal level Directions to Meet Your Goals Take your medications as prescribed Follow your dietary instruction Follow activity as directed Keep your appointments as scheduled Take your immunizations and boosters as scheduled If your symptoms worsen call your PCP, if no PCP go to Urgent Care Center or Emergency Room Smoking is Dangerous to Your Health. Avoid second hand smoke Call the 24-hour hour crisis hotline for domestic abuse at Mara Trevino October 31, 2017 15:43
--- NOTE | 2017-10-31 15:47 | HHI.DS ---
Discharge Summary Admission Date October 30, 2017 at 13:14 Discharge Date: November 01, 2017 Admitting Diagnosis leg weakness, CVA r/o, positive troponin, ROBERTO (1) ACS (acute coronary syndrome) ICD Codes: I24.9 - Acute ischemic heart disease, unspecified Status: Acute (2) Acute kidney injury ICD Codes: N17.9 - Acute kidney failure, unspecified Status: Acute (3) Atrial fibrillation/flutter Status: Acute (4) BPH (benign prostatic hyperplasia) ICD Codes: N40.0 - Benign prostatic hyperplasia without lower urinary tract symptoms Status: Chronic (5) Diabetes mellitus ICD Codes: E11.9 - Type 2 diabetes mellitus without complications Status: Chronic (6) Leukocytosis ICD Codes: D72.829 - Elevated white blood cell count, unspecified Consultants Hospice Procedures None Brief History This 87-year-old male patient with past medical history which includes arthritis , atrial fibrillation/flutter on Eliquis, BPH, CAD status post cardiac stent, chronic kidney disease stage III, 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 Patient presents to the ER with his caregiver Sammi Miranda due to concerns of bilateral lower extremity weakness, slurred speech which has resolved. Patient's complaint at this time is feeling fatigued with bilateral lower extremity weakness. Per caregiver patient went to bed normal yesterday and today he woke up with lower extremity weakness and slurred speech. He also appears to be more lethargic than usual. Patient has a history of osteomyelitis with a wound and wound vac to his left foot and taking chronically antibiotics, Bactrim. Patient was started on [place] for pain yesterday. He also takes Eliquis for atrial fibrillation/flutter. Per caregiver patient is DNR. Patient denies chest pain shortness of breath nausea vomiting diarrhea constipation fevers or chills. CBC/BMP: 10/31/17 0340 10/31/17 0340 Significant Findings Laboratory Tests Test 10/30/17 11:45 10/30/17 12:50 10/30/17 12:53 10/30/17 16:15 White Blood Count 14.8 TH/MM3 (4.0-11.0) Red Blood Count 3.70 MIL/MM3 (4.50-5.90) Hemoglobin 9.5 GM/DL (13.0-17.0) Hematocrit 29.6 % (39.0-51.0) Mean Corpuscular Hemoglobin 25.7 PG (27.0-34.0) Neutrophils (%) (Auto) 91.0 % (16.0-70.0) Lymphocytes (%) (Auto) 3.4 % (9.0-44.0) Neutrophils # (Auto) 13.5 TH/MM3 (1.8-7.7) Lymphocytes # (Auto) 0.5 TH/MM3 (1.0-4.8) Blood Urea Nitrogen 40 MG/DL (7-18) Creatinine 2.50 MG/DL (0.60-1.30) Random Glucose 235 MG/DL (74-106) Albumin 2.7 GM/DL (3.4-5.0) Magnesium Level 2.6 MG/DL (1.5-2.5) Alkaline Phosphatase 138 U/L (45-117) Sodium Level 133 MEQ/L (136-145) Potassium Level 5.3 MEQ/L (3.5-5.1) Estimat Glomerular Filtration Rate 25 ML/MIN (>89) Creatine Kinase MB 5.0 NG/ML (0.5-3.6) Troponin I 2.07 NG/ML (0.02-0.05) Lactic Acid Level 2.9 mmol/L (0.4-2.0) 2.9 mmol/L (0.4-2.0) Test 10/30/17 20:40 10/31/17 03:40 Blood Urea Nitrogen 42 MG/DL (7-18) 39 MG/DL (7-18) Creatinine 2.47 MG/DL (0.60-1.30) 2.25 MG/DL (0.60-1.30) Random Glucose 218 MG/DL (74-106) 149 MG/DL (74-106) Sodium Level 135 MEQ/L (136-145) 135 MEQ/L (136-145) Potassium Level 5.2 MEQ/L (3.5-5.1) Estimat Glomerular Filtration Rate 25 ML/MIN (>89) 28 ML/MIN (>89) Troponin I 10.70 NG/ML (0.02-0.05) 14.20 NG/ML (0.02-0.05) Red Blood Count 3.39 MIL/MM3 (4.50-5.90) Hemoglobin 8.8 GM/DL (13.0-17.0) Hematocrit 26.8 % (39.0-51.0) Mean Corpuscular Volume 79.1 FL (80.0-100.0) Mean Corpuscular Hemoglobin 26.0 PG (27.0-34.0) Neutrophils (%) (Auto) 81.3 % (16.0-70.0) Monocytes (%) (Auto) 8.4 % (0.0-8.0) Neutrophils # (Auto) 8.7 TH/MM3 (1.8-7.7) Calcium Level 8.3 MG/DL (8.5-10.1) Cholesterol Level 98 MG/DL (120-200) HDL Cholesterol 35.0 MG/DL (40.0-60.0) Imaging Last Impressions Carotid Artery Ultrasound 10/31/17 0000 Signed Impressions: CONCLUSION: Moderate plaque without hemodynamic significant stenosis in either carotid wilder ry. Head Magnetic Resonance Angiography 10/30/17 1248 Signed Impressions: CONCLUSION: 1. Diffuse atherosclerotic disease with areas of luminal narrowing as detailed above. Head CT 10/30/17 113 Signed Impressions: CONCLUSION: 1. Stable CT scan of the brain compared to 2016. 2. No acute intracranial hemorrhage. Chest X-Ray 10/30/17 113 Signed Impressions: CONCLUSION: 1. Platelike infiltrate in the right lower lung suggestive of atelectasis. 2. Nonspecific Elevation of the right hemidiaphragm. Brain MRI 10/30/17 0000 Signed Impressions: CONCLUSION: 1. No acute intracranial abnormality. 2. Atrophy. 3. Mild chronic small vessel ischemic change. Hospital Course 1) ACS 2) A/CKD 3 3) chronic heel wounds/osteo. 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 Patient presents to the ER with his caregiver Sammi [place] due to concerns of bilateral lower extremity weakness, slurred speech which has resolved. -Per caregiver patient is a DNR -Per caregiver Sammi Cihang she is POA, -Patient has bilateral lower extremity edema after starting hydrocodone yesterday -CT head reviewed and reveals stable CT of the brain compared to 2006. No acute intracranial hemorrhage -MRI of the brain reviewed and reveals no acute intracranial abnormality. Atrophy. Mild chronic small vessel ischemic changes. -On admission WBC 14.8 -LA 2.9 -CXR Shows Platelike infiltrate in the right lower lobe suggestive of atelectasis -Patient has wound vac left lower extremity and nonhealing wound which is foul smelling RLE -Will start Zosyn -IVF -Patient and caregiver expressed DNR, they do not want further cardiac w/up, comfort care and hospice consult -Patient and caregiver met with Hospice - Plan to DC patient home with hospice -further medication, wound care and follow ups per Hospice Pt Condition on Discharge: Deteriorating Discharge Disposition: Hospice/ Home Discharge Instructions DIET: Follow Instructions for: As Tolerated, No Restrictions Activities you can perform: Weight Bearing as Ian Additional Information Further medications, wound care and follow ups per Hospice Mara Trevino October 31, 2017 15:47
[2017-10-31] MEDS: COLLAGENASE OINT 30 GM TUBE TOPICAL SCH (21:00)
[2017-10-31 22:22] LABS: HEMOGLOBIN A1C 8.2 % (4.3-6.0)
[2017-10-31] MEDS: METOPROLOL TARTRATE 25 MG TAB PO SCH (23:24)
[2017-11-01] VITALS (11 sets, daily range): BP systolic 113–149; BP diastolic 59–87; PULSE 87–130; RESP 17–20; TEMP 97.5–98.8; O2SAT 95–100
[2017-11-01] MEDS: SODIUM CHLOR 0.9% 1000 ML INJ 1,000 ML IV SCH ×3 (00:45→06:20)
[2017-11-01] MEDS: PIPERACIL-TAZO 3.375 GM PREMIX 50 ML IV SCH (01:36)
[2017-11-01] MEDS: LORazepam 2 MG/ML VIAL IV PUSH PRN ×3 (01:36→11:24)
[2017-11-01] MEDS: MORPHINE SULFATE 4 MG/ML INJ IV PUSH PRN ×2 (04:40→14:55)
[2017-11-01] MEDS: METOPROLOL TARTRATE 25 MG TAB PO SCH ×3 (05:26→21:35)
[2017-11-01] MEDS: CLOPIDOGREL 75 MG TAB PO SCH (09:00)
[2017-11-01] MEDS: APIXABAN 2.5 MG TABLET PO SCH ×2 (09:00→21:34)
[2017-11-01] MEDS: FAMOTIDINE 20 MG TAB PO SCH (09:00)
[2017-11-01] MEDS: ISOSORBIDE MONONITRATE 30 MG CR TAB (IMDUR) PO SCH (09:00)
[2017-11-01] MEDS: ASPIRIN 325 MG TAB PO SCH (09:00)
[2017-11-01] MEDS: SODIUM CHLORIDE 0.9% FLUSH 10 ML FLUSH IV FLUSH SCH ×2 (09:00→21:35)
[2017-11-01] MEDS: PIPERACIL-TAZO 2.25 GM PREMIX 50 ML IV SCH ×3 (10:00→21:34)
[2017-11-01] MEDS ORDERED: PIPERACIL-TAZO 2.25 GM PREMIX 50 ML IV SCH ×2 (10:00→10:15)
--- NOTE | 2017-11-01 10:04 | HHI.PR ---
Subjective Remarks comfortable Objective Vitals heart irreg lung cta abd s/nt ext heel wounds Vital Signs Date Time Temp Pulse Resp B/P (MAP) Pulse Ox O2 Delivery O2 Flow Rate FiO2 11/01/17 08:00 98.8 92 20 113/73 (86) 100 11/01/17 01:54 96 11/01/17 00:51 101 11/01/17 00:02 130 11/01/17 00:00 Nasal Cannula 2.00 11/01/17 00:00 98.1 129 20 127/60 (82) 96 10/31/17 20:00 Nasal Cannula 2.00 10/31/17 20:00 98.3 138 20 144/96 (112) 100 10/31/17 19:49 131 10/31/17 16:06 98.1 107 17 129/60 (83) 100 10/31/17 12:06 98.1 98 17 99/57 (71) 100 Result Diagram: 10/31/17 0340 10/31/17 0340 Imaging Last Impressions Head CT 10/30/17 1135 Signed Impressions: CONCLUSION: 1. Stable CT scan of the brain compared to 2016. 2. No acute intracranial hemorrhage. Chest X-Ray 10/30/17 1135 Signed Impressions: CONCLUSION: 1. Platelike infiltrate in the right lower lung suggestive of atelectasis. 2. Nonspecific Elevation of the right hemidiaphragm. Brain MRI 10/30/17 0000 Signed Impressions: CONCLUSION: 1. No acute intracranial abnormality. 2. Atrophy. 3. Mild chronic small vessel ischemic change. 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 Patient presents to the ER with his caregiver Sammi Ruben due to concerns of bilateral lower extremity weakness, slurred speech which has resolved. -Per caregiver patient is a DNR -Per caregiver Sammi Chiang she is POA, -Patient has bilateral lower extremity edema after starting hydrocodone yesterday -CT head reviewed and reveals stable CT of the brain compared to 2006. No acute intracranial hemorrhage -MRI of the brain reviewed and reveals no acute intracranial abnormality. Atrophy. Mild chronic small vessel ischemic changes. 1) ACS 2) A/CKD 3 3) chronic heel wounds/osteo. wound vac left 4) afib/flutter rvr 5) cad 6) dm 2 Patient and caregiver expressed with for dnr, no cardiac w/up, comfort care and hospice consult Discussed with Merary from [facility]ice. [facility]. POA would like home with hospice d/c orders written (2) Acute kidney injury ICD Codes: N17.9 - Acute kidney failure, unspecified Status: Acute (3) Atrial fibrillation/flutter Status: Acute (4) BPH (benign prostatic hyperplasia) ICD Codes: N40.0 - Benign prostatic hyperplasia without lower urinary tract symptoms Status: Chronic Plan: Hold home medications due to hypotension (5) Diabetes mellitus ICD Codes: E11.9 - Type 2 diabetes mellitus without complications Status: Chronic (6) Leukocytosis ICD Codes: D72.829 - Elevated white blood cell count, unspecified Plan: On admission WBC 14.8 LA 2.9 CXR Shows Platelike infiltrate in the right lower lobe suggestive of atelectasis Patient has wound vac left lower extremity and nonhealing wound which is foul smelling RLE Will start Zosyn IVF recheck CBC in AM Nicolas Guerra MD November 01, 2017 10:04
[2017-11-01] MEDS ORDERED: DEXTROSE 50% IN WATER 50 ML VIAL(D50) IV PUSH PRN (14:15)
[2017-11-01] MEDS ORDERED: RESP: ALBUTEROL 2.5 MG/IPRATROPIUM 0.5 MG NEB (PRN) NEB (14:15)
[2017-11-01] MEDS ORDERED: GLUCAGON 1 MG/ML VIAL OTHER PRN (14:15)
--- NOTE | 2017-11-01 14:54 | PD.CONS ---
Consult Service Palliative Care . Consult Requested By Dr. Guerra . Primary Care Physician Sampson Kim MD . Reason for Consultation a. To assist with evaluation and management of symptoms including: pain b. To assist medical decision maker(s) with: better understanding of current medical conditions; weighing benefits/burdens of medical treatment options; making medical treatment decisions. . HPI History of Present Illness Mr. Rodgers is an 87-year-old male patient with arthritis, atrial fibrillation on Eliquis, BPD, CAD s/p cardiac stent, hypertension, chronic kidney disease, chronic nonhealing wounds, osteomyelitis, diabetes, esophageal ulcer,, GERD hyperlipidemia and peripheral vascular disease who presented to [facility] ED on for evaluation of bilateral lower extremity weakness and slurred speech. Patient's caregiver reportedly the patient has been more lethargic and weaker than usual. 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 He also takes Eliquis for a cardiac condition. Additional diagnostic data includes: * Vital signs: Pulse 90, respirations 20, BP 112/56, oxygen saturation 94% on room air, oral temperature 97.4 * WBC: 14.8, hemoglobin 9.5, hematocrit 29.6, platelets 322, neutrophils 91.0% * Sodium: 133, potassium 5.3, chloride 98, carbon dioxide 25.7, glucose 235, calcium 9.3, magnesium 2.6 * BUN: 40, creatinine 2.50, GFR 25 * Hemoglobin A1c: 8.2 * Total bilirubin: 0.2, AST 36, ALT 30, alkaline phosphatase 138 * Total creatine kinase 143 * CK-MB 5.0 * Troponin: 2.07 * Total protein: 6.5, albumin 2.7 * Lactic acid: 2.9 * PT: 11.6, INR 1.1, APTT 28.2 * Blood cultures growing gram-negative coccobacilli; gram-positive rods and gram -positive cocci. * Chest x-ray showed platelike infiltrate in the left lower lung suggestive of atelectasis * CT head was negative for acute process * EKG showing diffuse ST segment depression which appears new compared to prior EKGs reviewed from 2016 On exam, patient shows some signs and symptoms that are concerning for possible CVA. Timeline was unknown as the patient woke up with slurred speech and bilateral lower extremity weakness. It is unclear if the patient may have fallen; bruising is noted to the right side of his face. Patient has no history of previous CVA but he does take Eliquis and has comorbid conditions such as diabetes, hypertension and high cholesterol that would put him at high risk for a CVA. Lab work and imaging did not show evidence of acute CVA. Patient was admitted for further evaluation.VA. = MRI brain showed no acute intracranial abnormality; atrophy; mild chronic small vessel ischemic change. = MRA of the brain showed diffuse atherosclerotic disease with areas of luminal narrowing. Patient is a DNR and has a living will. Sammi Miranda is the designated healthcare surrogate decision maker. Initially, the patient/caregiver expressed comfort focus goals stating they did not want further diagnostic procedures. Hospice was consulted and met with the patient/caregiver. Patient was not enrolled with hospice; caregiver now stating she wishes to optimize the current hospitalization and may consider hospice services at discharge. Wound care, podiatry and cardiology consults are pending. Palliative Care was consulted to assist with symptom management and to discuss with the family the benefits and burdens of his current illnesses and the options regarding future care. . 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 He has home health nursing as well. Sammi Miranda is the patient's designated healthcare surrogate decision maker and she assist to manage his healthcare. Per review of EMR, patient has been nonambulatory since December,. . Review of Systems ROS Limitations: Altered Mental Status, Poor Historian, Other (ROS obtained through report and review of medical records.) Constitutional: COMPLAINS OF: Pain (BLE), Generalized weakness Eyes: COMPLAINS OF: Vision loss (reported by Sammi Miranda) Ears, nose, mouth, throat: COMPLAINS OF: Hearing loss (reported by Sammi Miranda) Cardiovascular: COMPLAINS OF: Lower Extremity Edema Hematologic/Lymphatics: COMPLAINS OF: Bruising Psychiatric: COMPLAINS OF: Confusion Past Family Social History Coded Allergies: No Known Allergies (Verified , 06/23/15) Past Medical History Arthritis Atrial fibrillation/flutter on Eliquis BPH Coronary artery disease status post cardiac stent Chronic kidney disease, stage III Chronic non-healing decubitus ulceration with osteomyelitis on the left heel Chronic nonhealing wounds right foot Diabetes Esophageal ulcer GERD Hyperlipidemia Peripheral vascular disease . Past Surgical History Cataract surgery Cardiac catheterization with stent placement Lithotripsy EGD Tonsillectomy Resection left foot wound with wound VAC placement . Reported Medications Ranitidine (Ranitidine HCl) 150 Mg Tab 150 Mg PO DAILY Metformin (Metformin HCl) 500 Mg Tab 500 Mg PO BID Zinc (Zinc Gluconate) 50 Mg Tab 50 Mg PO DAILY Tamsulosin (Tamsulosin HCl) 0.4 Mg Cap 0.4 Mg PO DAILY Metoprolol Tartrate 100 Mg Tab 50 Mg PO BID Isosorbide Mononitrate ER (Isosorbide Mononitrate) 30 Mg Viktoria 30 Mg PO DAILY Magnesium 250 Mg Tab 250 Mg PO DAILY Chromium Picolinate 200 Mcg Cap 200 Mg PO DAILY Eliquis (Apixaban) 5 Mg Tab 5 Mg PO BID Lisinopril 10 Mg Tab 10 Mg PO DAILY Stool Softener (Docusate Sodium) 100 Mg Tab 100 Mg PO DAILY PRN Multi-Vitamin/Minerals (Multiple Vitamins W/ Minerals) 1 Tab Tab 1 Tab PO DAILY Centrum Silver (Multiple Vitamins W/ Minerals) 400 Mcg-250 Mcg Chw 1 Tab PO DAILY Aspirin Adult Low Strength (Aspirin) 81 Mg Tabdr 81 Mg PO DAILY Amaryl (Glimepiride) 2 Mg Tab 2 Mg PO DAILY Gabapentin 100 Mg Cap 200 Mg PO TID Gabapentin 300 Mg Cap 300 Mg PO HS Hydrocodone-Acetaminophen 5-325 mg Tab 1 Tab PO Q6H PRN Proscar (Finasteride) 5 Mg Tab 5 Mg PO DAILY Do not crush. Melatonin 10 Mg Tablet 10 Mg PO HS PRN Bactrim DS (Sulfamethoxazole-Trimethoprim) 800-160 Mg Tab 1 Tab PO BID 10 Days Vitamin D3 (Cholecalciferol) 1,000 Unit Tab 2,000 Units PO DAILY Plavix (Clopidogrel Bisulfate) 75 Mg Tab 75 Mg PO DAILY . Current Medications Medications (Trade) Dose Ordered Sig/Dominic Route Start Time Stop Time Status Last Admin Sodium Chloride 1,000 ml @ 100 mls/hr Q10H IV 10/30/17 12:45 10/31/17 17:18 (NS Flush) 2 ml BID IV FLUSH 10/30/17 21:00 (NS Flush) 2 ml UNSCH PRN IV FLUSH 10/30/17 13:00 10/30/17 13:08 (Vasotec Inj) 1.25 mg Q4H PRN IV PUSH 10/30/17 13:00 (Trandate Inj) 10 mg Q2H PRN IV PUSH 10/30/17 13:00 Sodium Chloride 1,000 ml @ 75 mls/hr [id number] IV 10/30/17 13:00 11/01/17 06:20 (Nitrostat Sl) 0.4 mg Q5M PRN SL 10/30/17 13:00 (Aspirin) 325 mg DAILY PO 10/31/17 09:00 10/31/17 08:24 (Eliquis) 2.5 mg BID PO 10/30/17 21:00 10/31/17 20:27 (Plavix) 75 mg DAILY PO 10/31/17 09:00 10/31/17 08:24 (Imdur) 30 mg DAILY PO 10/31/17 09:00 10/31/17 08:24 (Colace) 100 mg DAILY PRN PO 10/30/17 18:00 (Pepcid) 20 mg DAILY PO 10/31/17 09:00 10/31/17 08:24 (Ativan Inj) 1 mg Q4H PRN IV PUSH 10/30/17 18:00 11/01/17 11:24 (Lopressor) 25 mg Q8HR PO 10/31/17 22:00 11/01/17 05:26 Piperacillin Sod/ Tazobactam Sod 50 ml @ 100 mls/hr Q6H IV 11/01/17 10:00 (Morphine Inj) 2 mg Q2HR PRN IV PUSH 11/01/17 11:15 (D50w (Vial) Inj) 50 ml UNSCH PRN IV PUSH 11/01/17 14:15 UNV (Glucagon Inj) 1 mg UNSCH PRN OTHER 11/01/17 14:15 UNV (NovoLOG SUPPLEMENTAL SCALE) 1 ACHS SLIDING SCALE SQ 11/01/17 17:00 UNV (Duoneb Neb) 1 ampule Q2HR NEB PRN NEB 11/01/17 14:15 UNV . Family History Pending further discussion with family or caregiver. . Substance Use Tobacco: None known Alcohol: None known Prescription med abuse: None known Illicits: None known . Psychosocial History Patient was born in [place]. He moved to the [place] when he was [age] years old. Patient served in the [employer] in [place]. He has traveled "all over the world." Patient speaks Turkmen, Frisian and Lithuanian. . Spiritual/Cultural Factors Agnostic . Living Will: Copy in medical record Health Care Surrogate: Copy in medical record Date completed: 06/13/2017 . Health Care Surrogate(s): Patient designated Sammi Chiang as his healthcare surrogate decision maker. . Documented care wishes: A living will was completed on 05/20/2017 and is accessible in the patient's paper chart as well as the EMR. A [facility] DO NOT RESUSCITATE order was completed on 10/31/2017. . Today's verbally stated goals: Given patient clinical condition, he was unable to assist in the establishment medical treatment goals. . Family/friends goals: Sammi states she would like to optimize her current hospitalization. She does not wish to pursue further diagnostic procedures or aggressive interventions. She may consider hospice services at discharge when the patient is medically stable. . Ethical and Legal Issues No known ethical or legal issues at this time. . Physical Exam Vital Signs Date Time Temp Pulse Resp B/P (MAP) Pulse Ox O2 Delivery O2 Flow Rate FiO2 11/01/17 12:00 97.5 127 20 140/78 (98) 100 11/01/17 10:17 96 Nasal Cannula 2.00 11/01/17 08:00 98.8 92 20 113/73 (86) 100 11/01/17 08:00 108 11/01/17 07:00 Nasal Cannula 2.00 11/01/17 01:54 96 11/01/17 00:51 101 11/01/17 00:02 130 11/01/17 00:00 Nasal Cannula 2.00 11/01/17 00:00 98.1 129 20 127/60 (82) 96 10/31/17 20:00 Nasal Cannula 2.00 10/31/17 20:00 98.3 138 20 144/96 (112) 100 10/31/17 19:49 131 10/31/17 16:06 98.1 107 17 129/60 (83) 100 . Exam CONSTITUTIONAL/GENERAL: This is a frail, elderly male patient in no acute distress. TUBES/LINES/DRAINS: PIV 1, nasal cannula SKIN: Ecchymoses on upper extremities. Wounds on heels bilaterally. Skin temperature appropriate. Not diaphoretic. HEAD: Atraumatic. Normocephalic. EYES: Pupils equal and round and reactive. Extraocular motions intact. No scleral icterus. No injection or drainage. Fundi not examined. ENT:[place]. Nose without bleeding or purulent drainage. Throat without visible erythema, exudates, masses, or lesions. NECK: Trachea midline. Supple, nontender. No palpable thyroid enlargement or nodularity. CARDIOVASCULAR: Regular rate and rhythm without murmurs, gallops, or rubs. No JVD. Peripheral pulses symmetric. RESPIRATORY/CHEST: No accessory muscle use. Clear to auscultation. Breath sounds equal bilaterally. GASTROINTESTINAL: Abdomen soft, non-tender, nondistended. No guarding. Bowel sounds present. GENITOURINARY: Without palpable bladder distension. MUSCULOSKELETAL: No joint tenderness or effusion noted. No calf tenderness. Bilateral heels with dressings dry and intact LYMPHATICS: No palpable cervical or supraclavicular adenopathy. NEUROLOGICAL: Lethargic. Patient arouses only briefly to persistent verbal stimuli. PSYCHIATRIC: No obvious anxiety/depression. No apparent hallucinations or other psychotic thought process. . Diagnostic Tests Laboratory Laboratory Tests Test 10/30/17 11:45 10/30/17 12:50 10/30/17 16:15 10/30/17 20:40 White Blood Count 14.8 TH/MM3 (4.0-11.0) Red Blood Count 3.70 MIL/MM3 (4.50-5.90) Hemoglobin 9.5 GM/DL (13.0-17.0) Hematocrit 29.6 % (39.0-51.0) Mean Corpuscular Volume 80.0 FL (80.0-100.0) Mean Corpuscular Hemoglobin 25.7 PG (27.0-34.0) Mean Corpuscular Hemoglobin Concent 32.1 % (32.0-36.0) Red Cell Distribution Width 16.7 % (11.6-17.2) Platelet Count 322 TH/MM3 (150-450) Mean Platelet Volume 7.3 FL (7.0-11.0) Neutrophils (%) (Auto) 91.0 % (16.0-70.0) Lymphocytes (%) (Auto) 3.4 % (9.0-44.0) Monocytes (%) (Auto) 5.4 % (0.0-8.0) Eosinophils (%) (Auto) 0.1 % (0.0-4.0) Basophils (%) (Auto) 0.1 % (0.0-2.0) Neutrophils # (Auto) 13.5 TH/MM3 (1.8-7.7) Lymphocytes # (Auto) 0.5 TH/MM3 (1.0-4.8) Monocytes # (Auto) 0.8 TH/MM3 (0-0.9) Eosinophils # (Auto) 0.0 TH/MM3 (0-0.4) Basophils # (Auto) 0.0 TH/MM3 (0-0.2) CBC Comment DIFF FINAL Differential Comment Prothrombin Time 11.6 SEC (9.8-11.6) Prothromb Time International Ratio 1.1 RATIO Activated Partial Thromboplast Time 28.2 SEC (24.3-30.1) Blood Urea Nitrogen 40 MG/DL (7-18) 42 MG/DL (7-18) Creatinine 2.50 MG/DL (0.60-1.30) 2.47 MG/DL (0.60-1.30) Random Glucose 235 MG/DL (74-106) 218 MG/DL (74-106) Total Protein 6.5 GM/DL (6.4-8.2) Albumin 2.7 GM/DL (3.4-5.0) Calcium Level 9.3 MG/DL (8.5-10.1) 8.8 MG/DL (8.5-10.1) Magnesium Level 2.6 MG/DL (1.5-2.5) 2.5 MG/DL (1.5-2.5) Alkaline Phosphatase 138 U/L (45-117) Aspartate Amino Transf (AST/SGOT) 36 U/L (15-37) Alanine Aminotransferase (ALT/SGPT) 30 U/L (12-78) Total Bilirubin 0.2 MG/DL (0.2-1.0) Sodium Level 133 MEQ/L (136-145) 135 MEQ/L (136-145) Potassium Level 5.3 MEQ/L (3.5-5.1) 5.2 MEQ/L (3.5-5.1) Chloride Level 98 MEQ/L (98-107) 100 MEQ/L (98-107) Carbon Dioxide Level 25.7 MEQ/L (21.0-32.0) 25.0 MEQ/L (21.0-32.0) Anion Gap 9 MEQ/L (5-15) 10 MEQ/L (5-15) Estimat Glomerular Filtration Rate 25 ML/MIN (>89) 25 ML/MIN (>89) Hemoglobin A1c 8.2 % (4.3-6.0) Total Creatine Kinase 143 U/L (39-308) 210 U/L (39-308) Creatine Kinase MB 5.0 NG/ML (0.5-3.6) Troponin I 2.07 NG/ML (0.02-0.05) 10.70 NG/ML (0.02-0.05) Thyroid Stimulating Hormone 3rd Gen 3.400 uIU/ML (0.358-3.740) Lactic Acid Level 2.9 mmol/L (0.4-2.0) 2.9 mmol/L (0.4-2.0) Test 10/31/17 03:40 White Blood Count 10.7 TH/MM3 (4.0-11.0) Red Blood Count 3.39 MIL/MM3 (4.50-5.90) Hemoglobin 8.8 GM/DL (13.0-17.0) Hematocrit 26.8 % (39.0-51.0) Mean Corpuscular Volume 79.1 FL (80.0-100.0) Mean Corpuscular Hemoglobin 26.0 PG (27.0-34.0) Mean Corpuscular Hemoglobin Concent 32.9 % (32.0-36.0) Red Cell Distribution Width 16.9 % (11.6-17.2) Platelet Count 288 TH/MM3 (150-450) Mean Platelet Volume 7.4 FL (7.0-11.0) Neutrophils (%) (Auto) 81.3 % (16.0-70.0) Lymphocytes (%) (Auto) 9.0 % (9.0-44.0) Monocytes (%) (Auto) 8.4 % (0.0-8.0) Eosinophils (%) (Auto) 0.9 % (0.0-4.0) Basophils (%) (Auto) 0.4 % (0.0-2.0) Neutrophils # (Auto) 8.7 TH/MM3 (1.8-7.7) Lymphocytes # (Auto) 1.0 TH/MM3 (1.0-4.8) Monocytes # (Auto) 0.9 TH/MM3 (0-0.9) Eosinophils # (Auto) 0.1 TH/MM3 (0-0.4) Basophils # (Auto) 0.0 TH/MM3 (0-0.2) CBC Comment DIFF FINAL Differential Comment Blood Urea Nitrogen 39 MG/DL (7-18) Creatinine 2.25 MG/DL (0.60-1.30) Random Glucose 149 MG/DL (74-106) Calcium Level 8.3 MG/DL (8.5-10.1) Magnesium Level 2.5 MG/DL (1.5-2.5) Sodium Level 135 MEQ/L (136-145) Potassium Level 4.9 MEQ/L (3.5-5.1) Chloride Level 101 MEQ/L (98-107) Carbon Dioxide Level 24.9 MEQ/L (21.0-32.0) Anion Gap 9 MEQ/L (5-15) Estimat Glomerular Filtration Rate 28 ML/MIN (>89) Total Creatine Kinase 221 U/L (39-308) Troponin I 14.20 NG/ML (0.02-0.05) Triglycerides Level 113 MG/DL (42-150) Cholesterol Level 98 MG/DL (120-200) LDL Cholesterol 40 MG/DL (0-99) HDL Cholesterol 35.0 MG/DL (40.0-60.0) Cholesterol/HDL Ratio 2.80 RATIO . Result Diagram: 10/31/17 0340 10/31/17 0340 Microbiology Microbiology Date/Time Source Procedure Growth Status 10/30/17 12:05 Blood Peripheral Aerobic Blood Culture - Preliminary NO GROWTH IN 2 DAYS Resulted 10/30/17 12:05 Anaerobic Blood Culture - Preliminary Proteus Species Pleomorphic Gram Positive Rods Staph Sp Coagulase Negative Resulted 10/30/17 12:00 Blood Peripheral Aerobic Blood Culture - Preliminary NO GROWTH IN 2 DAYS Resulted 10/30/17 12:00 Anaerobic Blood Culture - Preliminary Gram Negative Coccobacilli Pleomorphic Gram Positive Rods Gram Positive Cocci Resulted . Imaging Last 72 hours Impressions Carotid Artery Ultrasound 10/31/17 0000 Signed Impressions: CONCLUSION: Moderate plaque without hemodynamic significant stenosis in either carotid wilder ry. Head Magnetic Resonance Angiography 10/30/17 1248 Signed Impressions: CONCLUSION: 1. Diffuse atherosclerotic disease with areas of luminal narrowing as detailed above. Head CT 10/30/175 Signed Impressions: CONCLUSION: 1. Stable CT scan of the brain compared to 2016. 2. No acute intracranial hemorrhage. Chest X-Ray 10/30/17 1135 Signed Impressions: CONCLUSION: 1. Platelike infiltrate in the right lower lung suggestive of atelectasis. 2. Nonspecific Elevation of the right hemidiaphragm. Brain MRI 10/30/17 0000 Signed Impressions: CONCLUSION: 1. No acute intracranial abnormality. 2. Atrophy. 3. Mild chronic small vessel ischemic change. . Patient/Family Conference Present at Family Conference: Met patient at bedside; spoke to patient's HCS (Sammi Ruben) via telephone. . Family Conference Location: Bedside, Telephone Issues Discussed: DRAFT.. * Palliative care role, purpose, approach * Additional medical, psychosocial, and spiritual history * Patients general health, functional status, and cognitive changes in the months leading up to the current hospitalization * Patient/family understanding of the current medical problems * Patient/family understanding of prognosis * Patients goals of care as best understood from advance directives and/or conversations and/or values * Current medical treatment options and benefits/burdens of those options * Likely scenarios comparing ongoing aggressive care with a transition to comfort measures only * Questions answered to the best of my ability * Palliative care contact information provided . Assessment and Plan Disease Oriented Problem List: (1) Troponin level elevated (2) Acute kidney injury (3) Hyperlipidemia (4) Leukocytosis (5) ACS (acute coronary syndrome) (6) Diabetes mellitus (7) Atrial fibrillation/flutter (8) BPH (benign prostatic hyperplasia) Symptom Scale: (1) Pain 0-10 Scale: Unable to quantify Pertinent Non-Medical Issues Psychosocial: Patient was born in [place]. He moved to the [place] when he was [age] years old. Patient served in the [employer] in [place]. He has traveled "all over the world." Patient speaks Turkmen, Frisian and Lithuanian. Spiritual: Agnostic Legal: Patient designated Sammi Chiang as his healthcare surrogate decision maker. Additionally, a living will and a community DNR are in place. Ethical issues impacting care: No known ethical issues impacting care at this time. . Important Contacts Sammi Miranda, niece: [phone] . Prognosis Patient is a severely debilitated 87-year-old male currently hospitalized with acute coronary syndrome and CKD status post an STEMI. Patient has a history of osteomyelitis with a wound on his left foot and is on long-term antibiotics; recommendations have been made for a BKA. Patient is a poor candidate for any type of aggressive intervention. He is requesting hospice services for symptom management and end-of-life care which is appropriate as the patient's life expectancy is likely less than 6 months. . Code Status: No Code Plan * NO CODE * Decision-making: Patient currently showing limited insight and judgment related to his medical conditions; it is unclear if the patient will regain capacity for medical decision-making. He has designated Sammi Chiang as his healthcare surrogate decision maker. * A living will was completed on 05/20/2017 and is accessible in the patient's paper chart as well as the EMR. A [facility] DO NOT RESUSCITATE order was completed on 10/31/2017. * GOALS: Optimize her current hospitalization. Patient/CG not wish to pursue further diagnostic procedures or aggressive interventions. May consider hospice services at a later date. when the patient is medically stable. * Patient discussed with nurse (Mayela) and PA Trevino (Kim). * Symptom management-pain: Multifactoral. Patient has a history of osteomyelitis with a wound on his left foot and has been on long-term antibiotics. Additional contributing factors include coronary artery disease, infection, invasive lines etc. Morphine is available 2mg IV every 2 hours PRN for pain. Patient has received 2 doses in the past 24 hours. Palliative care will continue to monitor PRN requirements and make recommendations as appropriate. * Palliative care will continue to follow this patient throughout his hospitalization to establish stress, assist with symptom management and clarification of medical treatment goals. . Thank you for the opportunity to participate in the care of Mr. Gil. GarciaSenait Samuel LIU November 01, 2017 14:54
--- NOTE | 2017-11-01 16:59 | PD.WCN.NOT ---
Wound Consult Description: Received consult for wound management of L heel wound with wound VAC and R foot ulceration Communicated with: RN Mayela atkins and Mara DUMONT for Doctor Guerra Recommendation: 1.Please consult podiatry for wound to L heel possible and R lateral foot ulcer for possible debridement. 2. Please cleanse wound to L heel with normal saline and pat dry. 3.Apply Santyl ointment to Dakin's 0.125% moistened gauze packed in wound bed and cover with dry gauze and ABD pad. 4. Secure dressing with rolled gauze and tape. Change dressing daily or until seen by podiatry and podiatry writes their wound care orders. 5. Cleanse wound to R lateral foot with normal saline and at pat dry. Apply Santyl to wound bed and cover with dry gauze, rolled gauze and tape. Change dressing daily or until seen by podiatry and podiatry writes their wound care orders. 6. Please float bilateral heels off mattress surface. Additional Information: Patient seen on for wound management of L heel and with wound VAC and R foot ulceration. Patient had wound VAC from home that was on when patient was admitted. Attempted to reapply wound VAC to L heel. Removed ABD and gauze dressing in place to reveal open wound to L heel measuring 2.4cm x 9cm x ~3.5cm . Tunnel is noted at 6 o'clock that measures 4.4cm Wound bed is noted with ~60% yellow slough that is loosely adherent and stringy, ~10% facia, ~10% pink tissue and ~20% bone. Periwound presents with erythema from 6 to 12 o'clock and maceration from 12 to 8 o'clock and is boggy.Wound drainage is scant and sero- sanguinous. Wound also has foul odor.Do not recommend wound VAC at this time, due to necrotic tissue and s/s of infection. Wound was cleansed wound with normal saline and patted dry. Applied oil emulsion gauze over exposed bone.Applied saline moistened gauze packed loosely in wound bed and covered with dry gauze, and ABD pad. secured dressing with rolled gauze and tape.RN to apply dressing as recommended above. Assessed R foot. R lateral foot presents with small ulcer. Wound presents with ~ 70% adherent slough and ~30% pink tissue. Wound measures 1.2cm x0.4cm x ~0.2cm. Wound margins are sharp and even. Wound is dry without active drainage.Wound was cleansed with normal saline and patted dry. Applied oil emulsion gauze over dry wound bed and covered with dry 4x4 gauze pads, rolled gauze and tape until supplies arrive and RN can apply dressing as recommended above. Jessica Mohan [facility] November 01, 2017 16:59
[2017-11-01] MEDS: INSULIN ASPART SUPPLEMENTAL SCALE SQ SCH ×2 (17:00→21:00)
--- NOTE | 2017-11-01 17:29 | RADRPT ---
EXAM DATE: 11/01/2017 5:11 PM EDT AGE/SEX: 87 years / Male INDICATIONS: Follow up left foot post op. CLINICAL DATA: This is the patient's initial encounter. Patient reports that signs and symptoms have been present for 1 day and indicates a pain score of 4/10. MEDICAL/SURGICAL HISTORY: Non-responsive. Non-responsive. COMPARISON: No prior [place] exams available for comparison. FINDINGS: 3 views of the left foot demonstrate no fracture or dislocation. There is absence of the posterior in ferior aspect of the calcaneus. There is adjacent soft tissue air and soft tissue swelling. Severe so ft tissue swelling is also present on the dorsal aspect of the foot superficial to the metatarsals. S evere small vessel arterial vascular calcification is present. CONCLUSION: 1. There is absence of the posterior inferior aspect of the calcaneus. Suggest correlating with the surgical history as this could be osseous destruction or surgical resection change. There is adjacent soft tissue swelling and soft tissue air. 2. Severe soft tissue swelling on the dorsal aspect of the foot. 3. Severe small vessel vascular calcification in a pattern typically seen in diabetic patients. Electronically signed by: Serge Enriquez MD 11/01/2017 5:27 PM EDT
--- NOTE | 2017-11-01 17:34 | RADRPT ---
EXAM DATE: 11/01/2017 5:12 PM EDT AGE/SEX: 87 years / Male INDICATIONS: Right foot pain, follow up post op. CLINICAL DATA: This is the patient's initial encounter. Patient reports that signs and symptoms have been present for 1 day and indicates a pain score of Nonresponsive. MEDICAL/SURGICAL HISTORY: Non-responsive. Non-responsive. COMPARISON: No prior [place] exams available for comparison. FINDINGS: The examination demonstrates partial amputation of the first, second and third metatarsals. Note is m hattie of atherosclerotic plaquing within the digital arteries. The remainder the osseous structures are grossly intact. CONCLUSION: Postoperative changes as above. Electronically signed by: Scottie Rivera MD 11/01/2017 5:33 PM EDT
[2017-11-01] MEDS: SODIUM HYPOCHLORITE 0.125% 500 ML BTL TOPICAL SCH (21:00)
--- NOTE | 2017-11-01 22:03 | PD.CONS ---
History of Present Illness Service Podiatry Consult Requested By Reason for Consult Wounds with bone exposed Primary Care Physician Sampson Kim MD Diagnoses: History of Present Illness Mr. Rodgers is an 87-year-old male who presented to [place] ED on 10/30/2017 for evaluation of bilateral lower extremity weakness and slurred speech. Patient's caregiver reportedly the patient has been more lethargic and weaker than usual. 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 He also takes Eliquis for a cardiac condition. 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 wounds right foot Diabetes Esophageal ulcer GERD Hyperlipidemia Peripheral vascular disease Past Surgical History Cataract surgery Cardiac catheterization with stent placement Lithotripsy EGD Tonsillectomy Resection left foot wound with wound VAC placement Active Ordered Medications Current Medications Medications (Trade) Dose Ordered Sig/Dominic Route Start Time Stop Time Status Last Admin Sodium Chloride 1,000 ml @ 100 mls/hr Q10H IV 10/30/17 12:45 10/31/17 17:18 (NS Flush) 2 ml BID IV FLUSH 10/30/17 21:00 11/01/17 21:35 (NS Flush) 2 ml UNSCH PRN IV FLUSH 10/30/17 13:00 10/30/17 13:08 (Vasotec Inj) 1.25 mg Q4H PRN IV PUSH 10/30/17 13:00 (Trandate Inj) 10 mg Q2H PRN IV PUSH 10/30/17 13:00 Sodium Chloride 1,000 ml @ 75 mls/hr [id number] IV 10/30/17 13:00 11/01/17 06:20 (Nitrostat Sl) 0.4 mg Q5M PRN SL 10/30/17 13:00 (Aspirin) 325 mg DAILY PO 10/31/17 09:00 10/31/17 08:24 (Eliquis) 2.5 mg BID PO 10/30/17 21:00 11/01/17 21:34 (Plavix) 75 mg DAILY PO 10/31/17 09:00 10/31/17 08:24 (Imdur) 30 mg DAILY PO 10/31/17 09:00 10/31/17 08:24 (Colace) 100 mg DAILY PRN PO 10/30/17 18:00 (Pepcid) 20 mg DAILY PO 10/31/17 09:00 10/31/17 08:24 (Ativan Inj) 1 mg Q4H PRN IV PUSH 10/30/17 18:00 11/01/17 11:24 (Lopressor) 25 mg Q8HR PO 10/31/17 22:00 11/01/17 21:35 Piperacillin Sod/ Tazobactam Sod 50 ml @ 100 mls/hr Q6H IV 11/01/17 10:00 11/01/17 21:34 (Morphine Inj) 2 mg Q2HR PRN IV PUSH 11/01/17 11:15 11/01/17 14:55 (D50w (Vial) Inj) 50 ml UNSCH PRN IV PUSH 11/01/17 14:15 (Glucagon Inj) 1 mg UNSCH PRN OTHER 11/01/17 14:15 (NovoLOG SUPPLEMENTAL SCALE) 1 ACHS SLIDING SCALE SQ 11/01/17 17:00 (Duoneb Neb) 1 ampule Q2HR NEB PRN NEB 11/01/17 14:15 (Dakin'S 0.125% Soln) 500 ml DAILY TOPICAL 11/01/17 17:00 (Santyl Oint) 1 applic DAILY TOPICAL 11/01/17 17:00 Family History unknown Social History denies Physical Exam Vital Signs Vital Signs Date Time Temp Pulse Resp B/P (MAP) Pulse Ox O2 Delivery O2 Flow Rate FiO2 11/01/17 17:25 95 Nasal Cannula 2.00 11/01/17 16:05 98 11/01/17 16:00 97.5 107 20 137/59 (85) 95 11/01/17 12:00 101 11/01/17 12:00 97.5 127 20 140/78 (98) 100 11/01/17 10:17 96 Nasal Cannula 2.00 11/01/17 08:00 98.8 92 20 113/73 (86) 100 11/01/17 08:00 108 11/01/17 07:00 Nasal Cannula 2.00 11/01/17 01:54 96 11/01/17 00:51 101 11/01/17 00:02 130 11/01/17 00:00 Nasal Cannula 2.00 11/01/17 00:00 98.1 129 20 127/60 (82) 96 Physical Exam Left heel with diffuse erythema, edema, and severe pain per patient. Residual calcaneus exposed. Right lateral 5th met head with fibrotic ulceration 1cm diameter. No purulence noted. Laboratory Date/Time Source Procedure Growth Status 11/01/17 15:25 Blood Peripheral Aerobic Blood Culture Pending Received 11/01/17 15:25 Blood Peripheral Anaerobic Blood Culture Pending Received Result Diagram: 10/31/17 0340 10/31/17 0340 Imaging Last 72 hours Impressions Foot X-Ray 11/01/17 0000 Signed Impressions: CONCLUSION: Postoperative changes as above. Foot X-Ray 11/01/17 0000 Signed Impressions: CONCLUSION: 1. There is absence of the posterior inferior aspect of the calcaneus. Suggest correlating with the surgical history as this could be osseous destruction or surgical resection change. There is adjacent soft tissue swelling and soft tiss ue air. 2. Severe soft tissue swelling on the dorsal aspect of the foot. 3. Severe small vessel vascular calcification in a pattern typically seen in d iabetic patients. Carotid Artery Ultrasound 10/31/17 0000 Signed Impressions: CONCLUSION: Moderate plaque without hemodynamic significant stenosis in either carotid wilder ry. Head Magnetic Resonance Angiography 10/30/17 1248 Signed Impressions: CONCLUSION: 1. Diffuse atherosclerotic disease with areas of luminal narrowing as detailed above. Head CT 10/30/17 1135 Signed Impressions: CONCLUSION: 1. Stable CT scan of the brain compared to 2016. 2. No acute intracranial hemorrhage. Chest X-Ray 10/30/17 1135 Signed Impressions: CONCLUSION: 1. Platelike infiltrate in the right lower lung suggestive of atelectasis. 2. Nonspecific Elevation of the right hemidiaphragm. Brain MRI 10/30/17 0000 Signed Impressions: CONCLUSION: 1. No acute intracranial abnormality. 2. Atrophy. 3. Mild chronic small vessel ischemic change. Assessment and Plan Assessment and Plan Left foot status post partial calcanectomy Consult ordered for Dr Monique Recommend BKA Left lower extremity. Discussed with patient that a partial calcanectomy has already been performed to attempt to salvage and no other foot salvage option is available at this time He has been nonambulatory, per chart notes, since December 2016 Right foot with partial 1/2/3 rays amputated Small stable ulceration right lateral 5th metatarsal head area Ordering santyl dressing changes daily per nursing Mckenzie Pope DPM November 01, 2017 22:03
[2017-11-02] VITALS (8 sets, daily range): BP systolic 102–150; BP diastolic 61–82; PULSE 84–125; RESP 16–20; TEMP 97.5–98.4; O2SAT 94–100
[2017-11-02] MEDS: SODIUM CHLOR 0.9% 1000 ML INJ 1,000 ML IV SCH ×4 (00:45→21:00)
[2017-11-02] MEDS: LORazepam 2 MG/ML VIAL IV PUSH PRN ×3 (02:15→18:19)
[2017-11-02] MEDS: PIPERACIL-TAZO 2.25 GM PREMIX 50 ML IV SCH ×4 (04:14→23:19)
[2017-11-02] MEDS: METOPROLOL TARTRATE 25 MG TAB PO SCH ×3 (05:41→22:00)
[2017-11-02 07:04] LABS: AUTOMATED NEUTROPHIL # 9.5 TH/MM3 (1.8-7.7); BASOPHIL % 0.1 % (0.0-2.0); EOSINOPHIL % 0.1 % (0.0-4.0); HEMATOCRIT 34.4 % (39.0-51.0); HEMOGLOBIN 11.1 GM/DL (13.0-17.0); LYMPH % 2.8 % (9.0-44.0); LYMPHOCYTE # 0.3 TH/MM3 (1.0-4.8); MEAN CELL VOLUME 79.6 FL (80.0-100.0); MEAN CORPUSCULAR HEMOGLOBIN 25.7 PG (27.0-34.0); MEAN CORPUSCULAR HGB CONC 32.3 % (32.0-36.0); MEAN PLATELET VOLUME 7.4 FL (7.0-11.0); MONO % 3.8 % (0.0-8.0); MONOCYTE # 0.4 TH/MM3 (0-0.9); NEUT % 93.2 % (16.0-70.0); PLATELET COUNT 387 TH/MM3 (150-450); RED BLOOD COUNT 4.32 MIL/MM3 (4.50-5.90); WHITE BLOOD COUNT 10.2 TH/MM3 (4.0-11.0)
[2017-11-02 07:27] LABS: CALCIUM 9.1 MG/DL (8.5-10.1); CREATININE 2.04 MG/DL (0.60-1.30)
[2017-11-02] MEDS: INSULIN ASPART SUPPLEMENTAL SCALE SQ SCH ×4 (08:00→21:00)
--- NOTE | 2017-11-02 08:45 | PD.CONS ---
HPI Consult Requested By Primary Care Physician Sampson Kim MD History of Present Illness 87-year-old male with a past medical history of atrial fibrillation/flutter on Eliquis, BPH, CAD w/ h/o cardiac stent, CKD stage III/IV, 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 currently has a wound VAC in place, chronic nonhealing wound right foot, diabetes mellitus, esophageal ulcer/GERD, hyperlipidemia and PVD who presented for weakness and slurred speech. Patient is a poor historian and repeatedly falls asleep during evaluation, thus much of the history is obtained from staff communication in the medical record. Apparently the patient and POA had decided against aggressive management patient's multiple issues and have elected for hospice, but have now elected against hospice and for further evaluation. The patient was found to have worsening osteomyelitis of his foot as well as polymicrobial bacteremia. The patient was found to have elevated troponin of 2.07 which did elevate to 14.2. EKG shows A. fib with RVR with possible inferior lateral ST depressions, no prior EKGs available for comparison. The patient cannot say if he has been following with cardiology as outpatient, but the patient does deny any chest pain or shortness of breath at this time. Telemetry shows A. fib with RVR, rate around 120. Creatinine was elevated above baseline admission and although has improved still remains above 2. Podiatry has recommended vascular surgery evaluation for BKA. Review of Systems ROS Limitations: Poor Historian Past Family Social History Allergies: Coded Allergies: No Known Allergies (Verified , 06/23/15) Past Medical History atrial fibrillation/flutter on Eliquis, BPH, CAD w/ h/o cardiac stent per EMR, CKD stage III/IV, 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 currently has a wound VAC in place, chronic nonhealing wound right foot, diabetes mellitus, esophageal ulcer/GERD, hyperlipidemia and PVD Past Surgical History Cataract surgery, cardiac catheterization with stent placement, lithotripsy, EGD , tonsillectomy, resection left foot with wound VAC placement Reported Medications Reported Meds & Active Scripts Active Reported Ranitidine (Ranitidine HCl) 150 Mg Tab 150 Mg PO DAILY Metformin (Metformin HCl) 500 Mg Tab 500 Mg PO BID Zinc (Zinc Gluconate) 50 Mg Tab 50 Mg PO DAILY Tamsulosin (Tamsulosin HCl) 0.4 Mg Cap 0.4 Mg PO DAILY Metoprolol Tartrate 100 Mg Tab 50 Mg PO BID Isosorbide Mononitrate ER (Isosorbide Mononitrate) 30 Mg Viktoria 30 Mg PO DAILY Magnesium 250 Mg Tab 250 Mg PO DAILY Chromium Picolinate 200 Mcg Cap 200 Mg PO DAILY Eliquis (Apixaban) 5 Mg Tab 5 Mg PO BID Lisinopril 10 Mg Tab 10 Mg PO DAILY Stool Softener (Docusate Sodium) 100 Mg Tab 100 Mg PO DAILY PRN Multi-Vitamin/Minerals (Multiple Vitamins W/ Minerals) 1 Tab Tab 1 Tab PO DAILY Centrum Silver (Multiple Vitamins W/ Minerals) 400 Mcg-250 Mcg Chw 1 Tab PO DAILY Aspirin Adult Low Strength (Aspirin) 81 Mg Tabdr 81 Mg PO DAILY Amaryl (Glimepiride) 2 Mg Tab 2 Mg PO DAILY Gabapentin 100 Mg Cap 200 Mg PO TID Gabapentin 300 Mg Cap 300 Mg PO HS Hydrocodone-Acetaminophen 5-325 mg Tab 1 Tab PO Q6H PRN Proscar (Finasteride) 5 Mg Tab 5 Mg PO DAILY Do not crush. Melatonin 10 Mg Tablet 10 Mg PO HS PRN Bactrim DS (Sulfamethoxazole-Trimethoprim) 800-160 Mg Tab 1 Tab PO BID 10 Days Vitamin D3 (Cholecalciferol) 1,000 Unit Tab 2,000 Units PO DAILY Plavix (Clopidogrel Bisulfate) 75 Mg Tab 75 Mg PO DAILY Active Ordered Medications Current Medications Medications (Trade) Dose Ordered Sig/Dominic Route Start Time Stop Time Status Last Admin Sodium Chloride 1,000 ml @ 100 mls/hr Q10H IV 10/30/17 12:45 10/31/17 17:18 (NS Flush) 2 ml BID IV FLUSH 10/30/17 21:00 11/01/17 21:35 (NS Flush) 2 ml UNSCH PRN IV FLUSH 10/30/17 13:00 10/30/17 13:08 (Vasotec Inj) 1.25 mg Q4H PRN IV PUSH 10/30/17 13:00 (Trandate Inj) 10 mg Q2H PRN IV PUSH 10/30/17 13:00 Sodium Chloride 1,000 ml @ 75 mls/hr [id number] IV 10/30/17 13:00 11/01/17 06:20 (Nitrostat Sl) 0.4 mg Q5M PRN SL 10/30/17 13:00 (Aspirin) 325 mg DAILY PO 10/31/17 09:00 10/31/17 08:24 (Eliquis) 2.5 mg BID PO 10/30/17 21:00 11/01/17 21:34 (Plavix) 75 mg DAILY PO 10/31/17 09:00 10/31/17 08:24 (Imdur) 30 mg DAILY PO 10/31/17 09:00 10/31/17 08:24 (Colace) 100 mg DAILY PRN PO 10/30/17 18:00 (Pepcid) 20 mg DAILY PO 10/31/17 09:00 10/31/17 08:24 (Ativan Inj) 1 mg Q4H PRN IV PUSH 10/30/17 18:00 11/02/17 02:15 (Lopressor) 25 mg Q8HR PO 10/31/17 22:00 11/02/17 05:41 Piperacillin Sod/ Tazobactam Sod 50 ml @ 100 mls/hr Q6H IV 11/01/17 10:00 11/02/17 04:14 (Morphine Inj) 2 mg Q2HR PRN IV PUSH 11/01/17 11:15 11/01/17 14:55 (D50w (Vial) Inj) 50 ml UNSCH PRN IV PUSH 11/01/17 14:15 (Glucagon Inj) 1 mg UNSCH PRN OTHER 11/01/17 14:15 (NovoLOG SUPPLEMENTAL SCALE) 1 ACHS SLIDING SCALE SQ 11/01/17 17:00 (Duoneb Neb) 1 ampule Q2HR NEB PRN NEB 11/01/17 14:15 (Dakin'S 0.125% Soln) 500 ml DAILY TOPICAL 11/01/17 17:00 (Santyl Oint) 1 applic DAILY TOPICAL 11/01/17 17:00 Family History Unobtainable secondary to patient's mental status Social History Has caregivers during the day Denied EtOH use tobacco use or illicit drug use Physical Exam Vital Signs Vital Signs Date Time Temp Pulse Resp B/P (MAP) Pulse Ox O2 Delivery O2 Flow Rate FiO2 11/02/17 04:00 125 11/02/17 04:00 98.0 100 16 150/63 (92) 96 11/02/17 04:00 Nasal Cannula 3.50 11/02/17 00:00 119 11/02/17 00:00 Nasal Cannula 3.50 11/02/17 00:00 98.3 100 16 137/65 (89) 100 11/01/17 20:00 97.5 87 17 149/87 (107) 99 11/01/17 20:00 125 11/01/17 20:00 Nasal Cannula 3.53 11/01/17 17:25 95 Nasal Cannula 2.00 11/01/17 16:05 98 11/01/17 16:00 97.5 107 20 137/59 (85) 95 11/01/17 12:00 101 11/01/17 12:00 97.5 127 20 140/78 (98) 100 11/01/17 10:17 96 Nasal Cannula 2.00 Physical Exam GENERAL: Well-developed fair-nourished frail elderly male in no acute distress. NECK: No carotid bruits. No JVD. CARDIOVASCULAR: Tachycardic irregular rate and rhythm. No murmur appreciated. RESPIRATORY: No accessory muscle use. Clear to auscultation. Breath sounds equal bilaterally. MUSCULOSKELETAL: Bilateral feet wounds with clean dressings. No edema. NEUROLOGICAL: Somnolent but awakens easily. Normal speech. Laboratory Laboratory Tests Test 11/02/17 06:19 White Blood Count 10.2 Red Blood Count 4.32 Hemoglobin 11.1 Hematocrit 34.4 Mean Corpuscular Volume 79.6 Mean Corpuscular Hemoglobin 25.7 Mean Corpuscular Hemoglobin Concent 32.3 Red Cell Distribution Width 17.0 Platelet Count 387 Mean Platelet Volume 7.4 Neutrophils (%) (Auto) 93.2 Lymphocytes (%) (Auto) 2.8 Monocytes (%) (Auto) 3.8 Eosinophils (%) (Auto) 0.1 Basophils (%) (Auto) 0.1 Neutrophils # (Auto) 9.5 Lymphocytes # (Auto) 0.3 Monocytes # (Auto) 0.4 Eosinophils # (Auto) 0.0 Basophils # (Auto) 0.0 CBC Comment DIFF FINAL Differential Comment Blood Urea Nitrogen 46 Creatinine 2.04 Random Glucose 188 Calcium Level 9.1 Sodium Level 136 Potassium Level 5.1 Chloride Level 101 Carbon Dioxide Level 20.0 Anion Gap 15 Estimat Glomerular Filtration Rate 31 Date/Time Source Procedure Growth Status 11/01/17 15:25 Blood Peripheral Aerobic Blood Culture Pending Received 11/01/17 15:25 Blood Peripheral Anaerobic Blood Culture Pending Received Result Diagram: 11/02/17 0619 11/02/17 0619 Imaging Last Impressions Foot X-Ray 11/01/17 0000 Signed Impressions: CONCLUSION: Postoperative changes as above. Carotid Artery Ultrasound 10/31/17 0000 Signed Impressions: CONCLUSION: Moderate plaque without hemodynamic significant stenosis in either carotid wilder ry. Head Magnetic Resonance Angiography 10/30/17 1248 Signed Impressions: CONCLUSION: 1. Diffuse atherosclerotic disease with areas of luminal narrowing as detailed above. Head CT 10/30/17 1135 Signed Impressions: CONCLUSION: 1. Stable CT scan of the brain compared to 2016. 2. No acute intracranial hemorrhage. Chest X-Ray 10/30/17 1135 Signed Impressions: CONCLUSION: 1. Platelike infiltrate in the right lower lung suggestive of atelectasis. 2. Nonspecific Elevation of the right hemidiaphragm. Brain MRI 10/30/17 0000 Signed Impressions: CONCLUSION: 1. No acute intracranial abnormality. 2. Atrophy. 3. Mild chronic small vessel ischemic change. Assessment and Plan Assessment and Plan 87-year-old male with a past medical history of atrial fibrillation/flutter on Eliquis, BPH, CAD w/ h/o cardiac stent, CKD stage III/IV, 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 currently has a wound VAC in place, chronic nonhealing wound right foot, diabetes mellitus, esophageal ulcer/GERD, hyperlipidemia and PVD who presented for weakness and slurred speech. Patient is a poor historian and repeatedly falls asleep during evaluation, thus much of the history is obtained from staff communication in the medical record. Apparently the patient and POA had decided against aggressive management patient's multiple issues and have elected for hospice, but have now elected against hospice and for further evaluation. The patient was found to have worsening osteomyelitis of his foot as well as polymicrobial bacteremia. The patient was found to have elevated troponin of 2.07 which did elevate to 14.2. EKG shows A. fib with RVR with possible inferior lateral ST depressions, no prior EKGs available for comparison. NSTEMI: The patient is a very poor interventional candidate at this time with advanced renal disease and bacteremia. As the patient is chest pain-free, would recommend medical management. Continue aspirin, Plavix, beta-sridhar, Imdur. Will hold off on statin at this time as it would likely not be of great benefit with advanced age and multiple comorbidities. A. fib with RVR: Likely exacerbated by infection. On metoprolol 25 mg 3 times daily. Start diltiazem 30 mg 4 times daily for rate control and titrate as needed. Continue Eliquis for anticoagulation. Left foot osteomyelitis: Vascular surgery has been consulted for BKA. The patient would be at high cardiovascular risk for any procedure but as above would be a high risk candidate for any ischemic workup regardless. Discussed Condition With Patient, Dr. Guerra, Burton Whyte November 02, 2017 08:44
[2017-11-02] MEDS: COLLAGENASE OINT 30 GM TUBE TOPICAL SCH (09:00)
[2017-11-02] MEDS: SODIUM CHLORIDE 0.9% FLUSH 10 ML FLUSH IV FLUSH SCH ×2 (09:00→23:14)
[2017-11-02] MEDS: SODIUM HYPOCHLORITE 0.125% 500 ML BTL TOPICAL SCH (09:00)
--- NOTE | 2017-11-02 09:37 | HHI.PR ---
Subjective Remarks pt confused. Objective Vitals confused heart irreg lung cta abd s/nt ext left heel wound. right foot ulceration bandages were in place. Vital Signs Date Time Temp Pulse Resp B/P (MAP) Pulse Ox O2 Delivery O2 Flow Rate FiO2 11/02/17 04:00 125 11/02/17 04:00 98.0 100 16 150/63 (92) 96 11/02/17 04:00 Nasal Cannula 3.50 11/02/17 00:00 119 11/02/17 00:00 Nasal Cannula 3.50 11/02/17 00:00 98.3 100 16 137/65 (89) 100 11/01/17 20:00 97.5 87 17 149/87 (107) 99 11/01/17 20:00 125 11/01/17 20:00 Nasal Cannula 3.53 11/01/17 17:25 95 Nasal Cannula 2.00 11/01/17 16:05 98 11/01/17 16:00 97.5 107 20 137/59 (85) 95 11/01/17 12:00 101 11/01/17 12:00 97.5 127 20 140/78 (98) 100 11/01/17 10:17 96 Nasal Cannula 2.00 Result Diagram: 11/02/17 0619 11/02/17 0619 Imaging Last Impressions Head CT 10/30/17 1135 Signed Impressions: CONCLUSION: 1. Stable CT scan of the brain compared to 2016. 2. No acute intracranial hemorrhage. Chest X-Ray 10/30/17 1135 Signed Impressions: CONCLUSION: 1. Platelike infiltrate in the right lower lung suggestive of atelectasis. 2. Nonspecific Elevation of the right hemidiaphragm. Brain MRI 10/30/17 0000 Signed Impressions: CONCLUSION: 1. No acute intracranial abnormality. 2. Atrophy. 3. Mild chronic small vessel ischemic change. 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 Patient presents to the ER with his caregiver Sammi Miranda due to concerns of bilateral lower extremity weakness, slurred speech which has resolved. -Per caregiver patient is a DNR -Per caregiver Sammi Chiang she is POA, -Patient has bilateral lower extremity edema after starting hydrocodone yesterday -CT head reviewed and reveals stable CT of the brain compared to 2006. No acute intracranial hemorrhage -MRI of the brain reviewed and reveals no acute intracranial abnormality. Atrophy. Mild chronic small vessel ischemic changes. 1) ACS 2) A/CKD 3 3) chronic heel wounds/osteo. wound vac left 4) afib/flutter rvr 5) cad 6) dm 2 Pt caregiver/POA retraced the hospice order and requested full evaluation of his medical conditions Pt continues to be confused and a good hospice candidate I spoke to cardiology and he should be medically managed only for his acs and afib and no intervention podiatry and vascular assessing his bilateral foot wounds. wound care ordered. palliative care assisting with family and future goals. prognosis is poor and comfort care hospice is recommended. (2) Acute kidney injury ICD Codes: N17.9 - Acute kidney failure, unspecified Status: Acute (3) Atrial fibrillation/flutter Status: Acute (4) BPH (benign prostatic hyperplasia) ICD Codes: N40.0 - Benign prostatic hyperplasia without lower urinary tract symptoms Status: Chronic Plan: Hold home medications due to hypotension (5) Diabetes mellitus ICD Codes: E11.9 - Type 2 diabetes mellitus without complications Status: Chronic (6) Leukocytosis ICD Codes: D72.829 - Elevated white blood cell count, unspecified Plan: On admission WBC 14.8 LA 2.9 CXR Shows Platelike infiltrate in the right lower lobe suggestive of atelectasis Patient has wound vac left lower extremity and nonhealing wound which is foul smelling RLE On Zosyn initial blood cx's positive for multiple organisms . one could consider contaminants vs bacteremia from his left foot wound. no fever and wbc trending down. Nicolas Guerra MD November 02, 2017 09:37
[2017-11-02] MEDS: DILTIAZEM HCL 30 MG TAB PO SCH ×4 (09:59→17:48)
[2017-11-02] MEDS: ISOSORBIDE MONONITRATE 30 MG CR TAB (IMDUR) PO SCH (10:00)
[2017-11-02] MEDS: FAMOTIDINE 20 MG TAB PO SCH (10:02)
[2017-11-02] MEDS: APIXABAN 2.5 MG TABLET PO SCH ×2 (10:02→21:00)
[2017-11-02] MEDS: CLOPIDOGREL 75 MG TAB PO SCH (10:02)
[2017-11-02] MEDS: ASPIRIN 325 MG TAB PO SCH (10:04)
[2017-11-02] MEDS: MORPHINE SULFATE 4 MG/ML INJ IV PUSH PRN ×2 (13:27→19:31)
--- NOTE | 2017-11-02 15:56 | PD.CAR.PN ---
CVT Progress Note Subjective/Hospital Course: 11/02/2017 Patient evaluated in full consult dictated Patient is in end-of-life functional decline Fully agree with palliative care consultation and no surgeries planned Discussed with the caregiver and [facility] Objective: Vital Signs Date Time Temp Pulse Resp B/P (MAP) Pulse Ox O2 Delivery O2 Flow Rate FiO2 11/02/17 13:50 98 Nasal Cannula 3.00 11/02/17 08:00 113 11/02/17 04:00 125 11/02/17 04:00 98.0 100 16 150/63 (92) 96 11/02/17 04:00 Nasal Cannula 3.50 11/02/17 00:00 119 11/02/17 00:00 Nasal Cannula 3.50 11/02/17 00:00 98.3 100 16 137/65 (89) 100 11/01/17 20:00 97.5 87 17 149/87 (107) 99 11/01/17 20:00 125 11/01/17 20:00 Nasal Cannula 3.53 11/01/17 17:25 95 Nasal Cannula 2.00 11/01/17 16:05 98 11/01/17 16:00 97.5 107 20 137/59 (85) 95 Labs: Laboratory Tests Test 11/02/17 06:19 White Blood Count 10.2 TH/MM3 (4.0-11.0) Red Blood Count 4.32 MIL/MM3 (4.50-5.90) Hemoglobin 11.1 GM/DL (13.0-17.0) Hematocrit 34.4 % (39.0-51.0) Mean Corpuscular Volume 79.6 FL (80.0-100.0) Mean Corpuscular Hemoglobin 25.7 PG (27.0-34.0) Mean Corpuscular Hemoglobin Concent 32.3 % (32.0-36.0) Red Cell Distribution Width 17.0 % (11.6-17.2) Platelet Count 387 TH/MM3 (150-450) Mean Platelet Volume 7.4 FL (7.0-11.0) Neutrophils (%) (Auto) 93.2 % (16.0-70.0) Lymphocytes (%) (Auto) 2.8 % (9.0-44.0) Monocytes (%) (Auto) 3.8 % (0.0-8.0) Eosinophils (%) (Auto) 0.1 % (0.0-4.0) Basophils (%) (Auto) 0.1 % (0.0-2.0) Neutrophils # (Auto) 9.5 TH/MM3 (1.8-7.7) Lymphocytes # (Auto) 0.3 TH/MM3 (1.0-4.8) Monocytes # (Auto) 0.4 TH/MM3 (0-0.9) Eosinophils # (Auto) 0.0 TH/MM3 (0-0.4) Basophils # (Auto) 0.0 TH/MM3 (0-0.2) CBC Comment DIFF FINAL Differential Comment Blood Urea Nitrogen 46 MG/DL (7-18) Creatinine 2.04 MG/DL (0.60-1.30) Random Glucose 188 MG/DL (74-106) Calcium Level 9.1 MG/DL (8.5-10.1) Sodium Level 136 MEQ/L (136-145) Potassium Level 5.1 MEQ/L (3.5-5.1) Chloride Level 101 MEQ/L (98-107) Carbon Dioxide Level 20.0 MEQ/L (21.0-32.0) Anion Gap 15 MEQ/L (5-15) Estimat Glomerular Filtration Rate 31 ML/MIN (>89) Result Diagram: 11/02/17 0619 11/02/17 0619 Melvi Monique MD November 02, 2017 15:56
--- NOTE | 2017-11-02 16:16 | HHI.HCPN ---
Reason for visit a. To assist with evaluation and management of symptoms including: pain, encephalopathy b. To assist medical decision maker(s) with: better understanding of current medical conditions; weighing benefits/burdens of medical treatment options; making medical treatment decisions. . Subjective/Interval History Mr. Rodgers is an 87-year-old male patient with arthritis, atrial fibrillation on Eliquis, BPD, CAD s/p cardiac stent, hypertension, chronic kidney disease, chronic nonhealing wounds, osteomyelitis, diabetes, esophageal ulcer,, GERD hyperlipidemia and peripheral vascular disease who presented to [place] ED on for evaluation of bilateral lower extremity weakness and slurred speech. Patient's caregiver reportedly the patient has been more lethargic and weaker than usual. He has a history of osteomyelitis with a wound on his left foot and is on analysis engineer antibiotics. He also takes Eliquis for a cardiac condition. Follow-up visit for symptom management of pain and encephalopathy as well as clarification of medical treatment goals. Patient seen and assessed in room 1430. No friends or family members were present. Patient was lethargic, only arousing briefly to persistent verbal stimuli. Cardiology and podiatry were consulted yesterday. Patient has a history of osteomyelitis with a wound on his left foot and has been on long-term antibiotics. Dr. Spence (podiatry) evaluated the patient and made recommendations for a left BKA. Vascular surgery was also consulted and felt the patient would be high risk for any type of invasive procedures. Cardiology agreed, also recommending conservative medical management status post NSTEMI. Palliative care spoke to the healthcare surrogate, Sammi Miranda, again this afternoon. She is now stating that she would like to transition to comfort focused later this week after the patient has completed IV antibiotics. Discussed with charge nurse (Kiersten) and Dr. Guerra. Medical team is supportive of this decision. Hospice has been notified and a hospice nurse will be meeting with the healthcare surrogate again today 11/02/2017 between 6 PM and 7 PM; tentative plan for discharge on 11/04/2017 with transfer to the [facility] for symptom management and end-of-life care. . Family/friend interactions See interval history . Advance Directives Living Will: Copy in medical record Health Care Surrogate: Copy in medical record Advance Directive Specifics Date completed: 06/13/2017 . Health Care Surrogate(s): Patient designated Sammi Chiang as his healthcare surrogate decision maker. . Documented care wishes: A living will was completed on 05/20/2017 and is accessible in the patient's paper chart as well as the EMR. A [facility] DO NOT RESUSCITATE order was completed on 10/31/2017. . Significant change in goals: Meeting with hospice nurse again this evening; likely transition to hospice services with care center placement on 11/04/2017. . Objective Vital Signs Date Time Temp Pulse Resp B/P (MAP) Pulse Ox O2 Delivery O2 Flow Rate FiO2 11/02/17 13:50 98 Nasal Cannula 3.00 11/02/17 08:00 113 11/02/17 04:00 125 11/02/17 04:00 98.0 100 16 150/63 (92) 96 11/02/17 04:00 Nasal Cannula 3.50 11/02/17 00:00 119 11/02/17 00:00 Nasal Cannula 3.50 11/02/17 00:00 98.3 100 16 137/65 (89) 100 11/01/17 20:00 97.5 87 17 149/87 (107) 99 11/01/17 20:00 125 11/01/17 20:00 Nasal Cannula 3.53 11/01/17 17:25 95 Nasal Cannula 2.00 11/01/17 16:05 98 11/01/17 16:00 97.5 107 20 137/59 (85) 95 Intake & Output 11/02/17 11/02/17 07:00 19:00 Intake Total 200 ml Balance 200 ml Intake Oral 100 ml IV Total 100 ml # Voids 1 . Physical Exam CONSTITUTIONAL/GENERAL: This is a frail, elderly male patient in no acute distress. TUBES/LINES/DRAINS: PIV 1, nasal cannula SKIN: Ecchymoses on upper extremities. Wounds on heels bilaterally. Skin temperature appropriate. Not diaphoretic. HEAD: Atraumatic. Normocephalic. EYES: Pupils equal and round and reactive. Extraocular motions intact. No scleral icterus. No injection or drainage. Fundi not examined. ENT:MANZANITA. Nose without bleeding or purulent drainage. Throat without visible erythema, exudates, masses, or lesions. NECK: Trachea midline. Supple, nontender. No palpable thyroid enlargement or nodularity. CARDIOVASCULAR: Regular rate and rhythm without murmurs, gallops, or rubs. No JVD. Peripheral pulses symmetric. RESPIRATORY/CHEST: No accessory muscle use. Clear to auscultation. Breath sounds equal bilaterally. GASTROINTESTINAL: Abdomen soft, non-tender, nondistended. No guarding. Bowel sounds present. GENITOURINARY: Without palpable bladder distension. MUSCULOSKELETAL: No joint tenderness or effusion noted. No calf tenderness. Bilateral heels with dressings dry and intact LYMPHATICS: No palpable cervical or supraclavicular adenopathy. NEUROLOGICAL: Lethargic. Patient arouses only briefly to persistent verbal stimuli. PSYCHIATRIC: No obvious anxiety/depression. No apparent hallucinations or other psychotic thought process. . Diagnostic Tests Laboratory Laboratory Tests Test 10/30/17 16:15 10/30/17 20:40 10/31/17 03:40 11/02/17 06:19 Lactic Acid Level 2.9 mmol/L (0.4-2.0) Blood Urea Nitrogen 42 MG/DL (7-18) 39 MG/DL (7-18) 46 MG/DL (7-18) Creatinine 2.47 MG/DL (0.60-1.30) 2.25 MG/DL (0.60-1.30) 2.04 MG/DL (0.60-1.30) Random Glucose 218 MG/DL (74-106) 149 MG/DL (74-106) 188 MG/DL (74-106) Calcium Level 8.8 MG/DL (8.5-10.1) 8.3 MG/DL (8.5-10.1) 9.1 MG/DL (8.5-10.1) Sodium Level 135 MEQ/L (136-145) 135 MEQ/L (136-145) 136 MEQ/L (136-145) Potassium Level 5.2 MEQ/L (3.5-5.1) 4.9 MEQ/L (3.5-5.1) 5.1 MEQ/L (3.5-5.1) Chloride Level 100 MEQ/L (98-107) 101 MEQ/L (98-107) 101 MEQ/L (98-107) Carbon Dioxide Level 25.0 MEQ/L (21.0-32.0) 24.9 MEQ/L (21.0-32.0) 20.0 MEQ/L (21.0-32.0) Anion Gap 10 MEQ/L (5-15) 9 MEQ/L (5-15) 15 MEQ/L (5-15) Estimat Glomerular Filtration Rate 25 ML/MIN (>89) 28 ML/MIN (>89) 31 ML/MIN (>89) Magnesium Level 2.5 MG/DL (1.5-2.5) 2.5 MG/DL (1.5-2.5) Total Creatine Kinase 210 U/L (39-308) 221 U/L (39-308) Troponin I 10.70 NG/ML (0.02-0.05) 14.20 NG/ML (0.02-0.05) White Blood Count 10.7 TH/MM3 (4.0-11.0) 10.2 TH/MM3 (4.0-11.0) Red Blood Count 3.39 MIL/MM3 (4.50-5.90) 4.32 MIL/MM3 (4.50-5.90) Hemoglobin 8.8 GM/DL (13.0-17.0) 11.1 GM/DL (13.0-17.0) Hematocrit 26.8 % (39.0-51.0) 34.4 % (39.0-51.0) Mean Corpuscular Volume 79.1 FL (80.0-100.0) 79.6 FL (80.0-100.0) Mean Corpuscular Hemoglobin 26.0 PG (27.0-34.0) 25.7 PG (27.0-34.0) Mean Corpuscular Hemoglobin Concent 32.9 % (32.0-36.0) 32.3 % (32.0-36.0) Red Cell Distribution Width 16.9 % (11.6-17.2) 17.0 % (11.6-17.2) Platelet Count 288 TH/MM3 (150-450) 387 TH/MM3 (150-450) Mean Platelet Volume 7.4 FL (7.0-11.0) 7.4 FL (7.0-11.0) Neutrophils (%) (Auto) 81.3 % (16.0-70.0) 93.2 % (16.0-70.0) Lymphocytes (%) (Auto) 9.0 % (9.0-44.0) 2.8 % (9.0-44.0) Monocytes (%) (Auto) 8.4 % (0.0-8.0) 3.8 % (0.0-8.0) Eosinophils (%) (Auto) 0.9 % (0.0-4.0) 0.1 % (0.0-4.0) Basophils (%) (Auto) 0.4 % (0.0-2.0) 0.1 % (0.0-2.0) Neutrophils # (Auto) 8.7 TH/MM3 (1.8-7.7) 9.5 TH/MM3 (1.8-7.7) Lymphocytes # (Auto) 1.0 TH/MM3 (1.0-4.8) 0.3 TH/MM3 (1.0-4.8) Monocytes # (Auto) 0.9 TH/MM3 (0-0.9) 0.4 TH/MM3 (0-0.9) Eosinophils # (Auto) 0.1 TH/MM3 (0-0.4) 0.0 TH/MM3 (0-0.4) Basophils # (Auto) 0.0 TH/MM3 (0-0.2) 0.0 TH/MM3 (0-0.2) CBC Comment DIFF FINAL DIFF FINAL Differential Comment Triglycerides Level 113 MG/DL (42-150) Cholesterol Level 98 MG/DL (120-200) LDL Cholesterol 40 MG/DL (0-99) HDL Cholesterol 35.0 MG/DL (40.0-60.0) Cholesterol/HDL Ratio 2.80 RATIO . Result Diagram: 11/02/17 0619 11/02/17 06 Microbiology Microbiology Date/Time Source Procedure Growth Status 11/01/17 15:25 Blood Peripheral Aerobic Blood Culture - Preliminary NO GROWTH IN 1 DAY Resulted 11/01/17 15:25 Blood Peripheral Anaerobic Blood Culture - Preliminary NO GROWTH IN 1 DAY Resulted 11/01/17 15:18 Blood Peripheral Aerobic Blood Culture - Preliminary NO GROWTH IN 1 DAY Resulted 11/01/17 15:18 Blood Peripheral Anaerobic Blood Culture - Preliminary NO GROWTH IN 1 DAY Resulted Imaging Last 72 hours Impressions Foot X-Ray 11/01/17 0000 Signed Impressions: CONCLUSION: Postoperative changes as above. Foot X-Ray 11/01/17 0000 Signed Impressions: CONCLUSION: 1. There is absence of the posterior inferior aspect of the calcaneus. Suggest correlating with the surgical history as this could be osseous destruction or surgical resection change. There is adjacent soft tissue swelling and soft tiss ue air. 2. Severe soft tissue swelling on the dorsal aspect of the foot. 3. Severe small vessel vascular calcification in a pattern typically seen in d iabetic patients. Carotid Artery Ultrasound 10/31/17 0000 Signed Impressions: CONCLUSION: Moderate plaque without hemodynamic significant stenosis in either carotid wilder ry. . Assessment and Plan Disease Oriented Problem List: (1) Troponin level elevated (2) Acute kidney injury (3) Atrial fibrillation/flutter (4) BPH (benign prostatic hyperplasia) (5) Diabetes mellitus (6) Leukocytosis Symptom Scale: (1) Pain (2) Encephalopathy Pertinent Non-Medical Issues Psychosocial: Patient was born in [place]. He moved to the [place] when he was [age] years old. Patient served in the [employer] in [employer]. He has traveled "all over the world." Patient speaks Amharic, Mauritanian and Spanish. Spiritual: Agnostic Legal: Patient designated Sammi Chiang as his healthcare surrogate decision maker. Additionally, a living will and a community DNR are in place. Ethical issues impacting care: No known ethical issues impacting care at this time. . Important Contacts Sammi Mirandavalenteece: [phone] . Prognosis Patient is a severely debilitated 87-year-old male currently hospitalized with acute coronary syndrome and CKD status post an STEMI. Patient has a history of osteomyelitis with a wound on his left foot and is on long-term antibiotics; recommendations have been made for a BKA. Patient is a poor candidate for any type of aggressive intervention. He is requesting hospice services for symptom management and end-of-life care which is appropriate as the patient's life expectancy is likely less than 6 months. . Code Status: No Code Plan * NO CODE * Decision-making: Patient currently showing limited insight and judgment related to his medical conditions; it is unclear if the patient will regain capacity for medical decision-making. He has designated Sammi Chiang as his healthcare surrogate decision maker. * A living will was completed on 05/20/2017 and is accessible in the patient's paper chart as well as the EMR. A [facility] DO NOT RESUSCITATE order was completed on 10/31/2017. * GOALS: HCS would like to transition to comfort focused later this week after the patient has completed IV antibiotics. * Discussed with charge nurse (Kiersten), Dr. Guerra Medical team is supportive of this decision. * Hospice has been notified and a hospice nurse will be meeting with the healthcare surrogate again today 11/02/2017 between 6 PM and 7 PM; tentative plan for discharge on 11/04/2017 with transfer to the [facility] for symptom management and end-of-life care. * Palliative care contact information was provided to the patient's healthcare surrogate decision maker. * Symptom management: = Pain: Multifactoral. Patient has a history of osteomyelitis with a wound on his left foot and has been on long-term antibiotics. Additional contributing factors include coronary artery disease, infection, invasive lines etc. Morphine is available 2mg IV every 2 hours PRN for pain. Patient has received 2 doses in the past 24 hours. Palliative care will continue to monitor PRN requirements and make recommendations as appropriate. = Encephalopathy: Multifactoral. Contributing factors may include infection , metabolic encephalopathy dementia? Patient's caregivers states patient is cognitively sharp at baseline.CT head reviewed and reveals stable CT of the brain compared to 2006. No acute intracranial hemorrhage. MRI of the brain reviewed and reveals no acute intracranial abnormality. Atrophy. Mild chronic small vessel ischemic changes. * Palliative care will continue to follow throughout this hospitalization to establish trust, assist with symptom management and clarification of medical treatment goals. . Time Spent Total Floor Time (mins): 55 (Time spent [id number]. Time to include review of medcal recoreds, ptient examination, discussions with HCS, collaboration with medical team.) Face to Face Time (mins): 16 >50% Counseling/Coord of Care: Yes Senait Garcia November 02, 2017 16:16
--- NOTE | 2017-11-02 16:39 | MB ---
cc: Melvi Monique MD, Slobodan MD DATE: 11/02/2017 REASON FOR CONSULTATION: Gangrene of the left heel with exposed bone ,bedridden status, functional decline, vascular disease. HISTORY OF PRESENT ILLNESS: This 87-year-old unfortunate gentleman with multiple medical problems presented to the hospital with an exposed wound of the left leg. This is beyond the scope of repair or resection by podiatry at this point and osteomyelitis has set in. Question arises whether the patient should have a below-knee amputation. It should be noted that in the past he also had ulceration of the right foot and had partial amputation in the form of a ray procedure. PAST MEDICAL HISTORY: Complex includes coronary artery disease, hypertension, chronic renal insufficiency, atrial fibrillation on Eliquis, diabetes mellitus, osteomyelitis of both legs, hyperlipidemia, esophageal ulcer. PAST SURGICAL HISTORY: Coronary artery angioplasty and stenting, multiple previous foot surgeries in various hospitals, cataract surgery, lithotripsy, tonsillectomy and EGD. MEDICATIONS: Can be found on the record, are numerous including Eliquis for A-fib. ALLERGIES: None. SOCIAL HISTORY: The patient is . He is a of the [employer]. PHYSICAL EXAMINATION: GENERAL: Reveals an 87-year-old gentleman lying silently in bed, not responding to any verbal stimulation, responding to pain by moving. HEENT: Normocephalic. No trauma to the head. Pupils are equal and poorly reactive. Extraocular muscles cannot be tested. The patient is not following any commands. NECK: Bilateral carotid pulses. No bruits. No lymphadenopathy. CHEST: Bilateral breath sounds. HEART: Irregular rhythm consistent with A-fib in about 90 range. The patient has massive atrophy of chest wall musculature with loss of muscle and subcutaneous tissue. He appears to be very weak. ABDOMEN: Soft, patulous. No rebound, no guarding, no masses. EXTREMITIES: The patient has actually palpable femoral pulses and good dopplerable popliteal pulses, very weak dorsalis pedis on the left and on the right side I cannot get any distal pulses. Feet are cool, but there is no acute vascular deficit. The wound on the right leg is present and, on the left leg, there is an exposed bone of the heel. NEUROLOGIC: The patient is very somnolent. When I examined him, he was alert and awake but barely responding to any stimuli, although he wakes up and then drifts off. IMPRESSION AND RECOMMENDATIONS: I reviewed laboratory and diagnostics procedures. I have also discussed this with his caregiver. In different circumstances heel wounds with exposed calcaneus usually end up being below-knee amputations, because clearing this up and healing it is almost impossible. In this particular situation, this gentleman is Do Not Resuscitate. He is in the care of a palliative service, which is completely appropriate. He has massive functional decline and is nearing the end of his life. No invasive surgical procedure or any other procedure should be performed on this patient and he should be allowed to in peace as per his wishes. According to the caregiver, he will go to the hospice in a day or 2. There is nothing further to add. I thank you very much for referral. MD MACARENA Laws/ , 03:38 PM , 04:38 PM
[2017-11-03] VITALS (8 sets, daily range): BP systolic 112–145; BP diastolic 64–98; PULSE 84–129; RESP 18–24; TEMP 97.3–98.1; O2SAT 98–100
[2017-11-03] MEDS: METOPROLOL TARTRATE 25 MG TAB PO SCH (04:44)
[2017-11-03] MEDS: PIPERACIL-TAZO 2.25 GM PREMIX 50 ML IV SCH ×4 (04:44→22:13)
[2017-11-03] MEDS: DILTIAZEM HCL 30 MG TAB PO SCH (04:44)
[2017-11-03] MEDS: MORPHINE SULFATE 4 MG/ML INJ IV PUSH PRN (05:04)
[2017-11-03] MEDS: SODIUM CHLOR 0.9% 1000 ML INJ 1,000 ML IV SCH ×3 (06:23→22:13)
[2017-11-03] MEDS: INSULIN ASPART SUPPLEMENTAL SCALE SQ SCH ×4 (08:00→21:00)
[2017-11-03] MEDS: CLOPIDOGREL 75 MG TAB PO SCH (09:00)
[2017-11-03] MEDS: ISOSORBIDE MONONITRATE 30 MG CR TAB (IMDUR) PO SCH (09:00)
[2017-11-03] MEDS: FAMOTIDINE 20 MG TAB PO SCH (09:00)
[2017-11-03] MEDS: ASPIRIN 325 MG TAB PO SCH (09:00)
[2017-11-03] MEDS: APIXABAN 2.5 MG TABLET PO SCH (09:00)
[2017-11-03] MEDS: SODIUM CHLORIDE 0.9% FLUSH 10 ML FLUSH IV FLUSH SCH ×2 (09:18→21:22)
[2017-11-03] MEDS: COLLAGENASE OINT 30 GM TUBE TOPICAL SCH (09:19)
[2017-11-03] MEDS: SODIUM HYPOCHLORITE 0.125% 500 ML BTL TOPICAL SCH (09:19)
--- NOTE | 2017-11-03 09:50 | HHI.PR ---
Subjective Remarks pt lethargic at moment and unable to swallow meds pt has periods of agitation. Objective Vitals currently nad Vital Signs Date Time Temp Pulse Resp B/P (MAP) Pulse Ox O2 Delivery O2 Flow Rate FiO2 11/03/17 05:00 97.5 102 24 112/81 (91) 98 11/03/17 04:00 121 11/03/17 00:00 97.3 84 20 119/64 (82) 100 11/03/17 00:00 105 11/02/17 22:10 98 Nasal Cannula 3.00 11/02/17 20:00 115 11/02/17 20:00 97.6 101 20 103/82 (89) 100 11/02/17 20:00 Nasal Cannula 3.00 11/02/17 16:00 86 11/02/17 16:00 97.5 84 18 127/70 (89) 94 11/02/17 13:50 98 Nasal Cannula 3.00 11/02/17 12:00 124 11/02/17 12:00 98.4 121 18 118/66 (83) 98 Result Diagram: 11/02/17 0619 11/02/17 0619 Imaging Last Impressions Head CT 10/30/17 1135 Signed Impressions: CONCLUSION: 1. Stable CT scan of the brain compared to 2016. 2. No acute intracranial hemorrhage. Chest X-Ray 10/30/17 1135 Signed Impressions: CONCLUSION: 1. Platelike infiltrate in the right lower lung suggestive of atelectasis. 2. Nonspecific Elevation of the right hemidiaphragm. Brain MRI 10/30/17 0000 Signed Impressions: CONCLUSION: 1. No acute intracranial abnormality. 2. Atrophy. 3. Mild chronic small vessel ischemic change. 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 Patient presents to the ER with his caregiver Sammi [place] due to concerns of bilateral lower extremity weakness, slurred speech which has resolved. -Per caregiver patient is a DNR -Per caregiver Sammi Chiang she is POA, -Patient has bilateral lower extremity edema after starting hydrocodone yesterday -CT head reviewed and reveals stable CT of the brain compared to 2006. No acute intracranial hemorrhage -MRI of the brain reviewed and reveals no acute intracranial abnormality. Atrophy. Mild chronic small vessel ischemic changes. 1) ACS 2) A/CKD 3 3) chronic heel wounds/osteo. wound vac left 4) afib/flutter rvr 5) cad 6) dm 2 Pt caregiver/POA retraced the hospice order and requested full evaluation of his medical conditions Now I'm told she has agreed to hospice care center for tomorrow if we continue iv abx today and give him iv digoxin today for afib/rvr. ...pt unable to swallow any medications. Pt continues to be confused and a good hospice candidate I spoke to cardiology and he should be medically managed only for his acs and afib and no intervention podiatry and vascular assessing his bilateral foot wounds. wound care ordered. discussed with Dr Jordan no intervention recommended. dc order for care center written for tomorrow. (2) Acute kidney injury ICD Codes: N17.9 - Acute kidney failure, unspecified Status: Acute (3) Atrial fibrillation/flutter Status: Acute (4) BPH (benign prostatic hyperplasia) ICD Codes: N40.0 - Benign prostatic hyperplasia without lower urinary tract symptoms Status: Chronic Plan: Hold home medications due to hypotension (5) Diabetes mellitus ICD Codes: E11.9 - Type 2 diabetes mellitus without complications Status: Chronic (6) Leukocytosis ICD Codes: D72.829 - Elevated white blood cell count, unspecified Plan: On admission WBC 14.8 LA 2.9 CXR Shows Platelike infiltrate in the right lower lobe suggestive of atelectasis Patient has wound vac left lower extremity and nonhealing wound which is foul smelling RLE On Zosyn initial blood cx's positive for multiple organisms . one could consider contaminants vs bacteremia from his left foot wound. no fever and wbc trending down. Nicolas Guerra MD November 03, 2017 09:50
[2017-11-03] MEDS ORDERED: DIGOXIN 0.5 MG/2 ML VIAL IV PUSH ONE (11:30)
[2017-11-03] MEDS ORDERED: DIGOXIN 0.5 MG/2 ML VIAL IV PUSH PRN (12:00)
[2017-11-03] MEDS: LORazepam 2 MG/ML VIAL IV PUSH PRN ×2 (14:24→18:06)
[2017-11-04] VITALS: BP 122/68; PULSE 89; RESP 16; TEMP 97.8; O2SAT 99
[2017-11-04 04:00] VITALS: BP 126/83; PULSE 124; RESP 16; TEMP 97.4; O2SAT 100
[2017-11-04] MEDS: PIPERACIL-TAZO 2.25 GM PREMIX 50 ML IV SCH ×2 (05:39→08:43)
[2017-11-04] MEDS: ASPIRIN 325 MG TAB PO SCH (07:46)
[2017-11-04] MEDS: CLOPIDOGREL 75 MG TAB PO SCH (07:46)
[2017-11-04] MEDS: SODIUM HYPOCHLORITE 0.125% 500 ML BTL TOPICAL SCH (07:46)
[2017-11-04] MEDS: ISOSORBIDE MONONITRATE 30 MG CR TAB (IMDUR) PO SCH (07:46)
[2017-11-04] MEDS: COLLAGENASE OINT 30 GM TUBE TOPICAL SCH (07:47)
[2017-11-04] MEDS: INSULIN ASPART SUPPLEMENTAL SCALE SQ SCH ×2 (08:00→12:00)
[2017-11-04] MEDS ORDERED: DIGOXIN 0.5 MG/2 ML VIAL IV PUSH STA (08:07)
[2017-11-04] MEDS: SODIUM CHLORIDE 0.9% FLUSH 10 ML FLUSH IV FLUSH SCH (08:42)
[2017-11-04] MEDS: LORazepam 2 MG/ML VIAL IV PUSH PRN ×2 (08:43→15:49)
[2017-11-04 08:45] VITALS: BP 161/79; PULSE 104; RESP 21; TEMP 98.6; O2SAT 100
--- NOTE | 2017-11-04 10:45 | HHI.PR ---
Subjective Remarks lethargic Objective Vitals irreg irreg lung course bs abd s/nt ext heel wound/bandages Vital Signs Date Time Temp Pulse Resp B/P (MAP) Pulse Ox O2 Delivery O2 Flow Rate FiO2 11/04/17 08:45 98.6 104 21 161/79 (106) 100 11/04/17 04:00 97.4 124 16 126/83 (97) 100 11/04/17 00:00 97.8 89 16 122/68 (86) 99 11/03/17 20:00 Nasal Cannula 3.00 11/03/17 20:00 97.4 97 18 145/82 (103) 100 11/03/17 17:50 99 Nasal Cannula 3.00 11/03/17 17:29 Nasal Cannula 3.00 11/03/17 16:00 108 11/03/17 16:00 97.7 109 20 143/77 (99) 99 11/03/17 14:15 Nasal Cannula 3.00 11/03/17 12:00 97.6 92 18 135/98 (110) 100 11/03/17 12:00 129 11/03/17 11:30 3.00 11/03/17 11:00 Nasal Cannula 3.00 Result Diagram: 11/02/17 0619 11/02/17 0619 Imaging Last Impressions Head CT 10/30/17 1135 Signed Impressions: CONCLUSION: 1. Stable CT scan of the brain compared to 2016. 2. No acute intracranial hemorrhage. Chest X-Ray 10/30/17 1135 Signed Impressions: CONCLUSION: 1. Platelike infiltrate in the right lower lung suggestive of atelectasis. 2. Nonspecific Elevation of the right hemidiaphragm. Brain MRI 10/30/17 0000 Signed Impressions: CONCLUSION: 1. No acute intracranial abnormality. 2. Atrophy. 3. Mild chronic small vessel ischemic change. 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 Patient presents to the ER with his caregiver Sammi Miranda due to concerns of bilateral lower extremity weakness, slurred speech which has resolved. -Per caregiver patient is a DNR -Per caregiver Sammi Chiang she is POA, -Patient has bilateral lower extremity edema after starting hydrocodone yesterday -CT head reviewed and reveals stable CT of the brain compared to 2006. No acute intracranial hemorrhage -MRI of the brain reviewed and reveals no acute intracranial abnormality. Atrophy. Mild chronic small vessel ischemic changes. 1) ACS 2) A/CKD 3 3) chronic heel wounds/osteo. wound vac left 4) afib/flutter rvr 5) cad 6) dm 2 Pt caregiver/POA retraced the hospice order and requested full evaluation of his medical conditions Now I'm told she has agreed to hospice care center for today. iv abx and iv dig were given ...pt unable to swallow any medications. Pt continues to be confused and a good hospice candidate I spoke to cardiology and he should be medically managed only for his acs and afib and no intervention podiatry and vascular assessing his bilateral foot wounds. wound care ordered. discussed with Dr Jordan no intervention recommended. dc order for care center written (2) Acute kidney injury ICD Codes: N17.9 - Acute kidney failure, unspecified Status: Acute (3) Atrial fibrillation/flutter Status: Acute (4) BPH (benign prostatic hyperplasia) ICD Codes: N40.0 - Benign prostatic hyperplasia without lower urinary tract symptoms Status: Chronic Plan: Hold home medications due to hypotension (5) Diabetes mellitus ICD Codes: E11.9 - Type 2 diabetes mellitus without complications Status: Chronic (6) Leukocytosis ICD Codes: D72.829 - Elevated white blood cell count, unspecified Plan: On admission WBC 14.8 LA 2.9 CXR Shows Platelike infiltrate in the right lower lobe suggestive of atelectasis Patient has wound vac left lower extremity and nonhealing wound which is foul smelling RLE On Zosyn initial blood cx's positive for multiple organisms . one could consider contaminants vs bacteremia from his left foot wound. no fever and wbc trending down. Nicolas Guerra MD Nov 04, 2017 10:45
[2017-11-04] MEDS: SODIUM CHLOR 0.9% 1000 ML INJ 1,000 ML IV SCH (12:16)
[2017-11-04 12:40] VITALS: BP 144/82; PULSE 111; RESP 20; TEMP 98.4; O2SAT 100
[2017-11-04] MEDS: MORPHINE SULFATE 4 MG/ML INJ IV PUSH PRN (16:19)
== END 2017-11-04 16:35 | disposition hospice, inpatient (51) | DRG 311 ==
LOC: NEPE 11:14 → NEDA 13:14 → N04B 14:29
PROVIDERS: ADMIT Hospitalist; ATTEND Hospitalist
DX: I24.9 Acute ischemic heart disease, unspecified (principal); N17.9 Acute kidney failure, unspecified; I96 Gangrene, not elsewhere classified; G93.40 Encephalopathy, unspecified; I13.0 Hypertensive heart and chronic kidney disease with heart failure and stage 1 through stage 4 chronic kidney disease, or unspecified chronic kidney disease; I48.92 Unspecified atrial flutter; I42.9 Cardiomyopathy, unspecified; I50.9 Heart failure, unspecified; E11.69 Type 2 diabetes mellitus with other specified complication; E11.52 Type 2 diabetes mellitus with diabetic peripheral angiopathy with gangrene; M86.9 Osteomyelitis, unspecified; J98.11 Atelectasis; K21.9 Gastro-esophageal reflux disease without esophagitis; N18.3 Chronic kidney disease, stage 3 (moderate); I48.91 Unspecified atrial fibrillation; I25.10 Atherosclerotic heart disease of native coronary artery without angina pectoris; L97.519 Non-pressure chronic ulcer of other part of right foot with unspecified severity; L89.629 Pressure ulcer of left heel, unspecified stage; J44.9 Chronic obstructive pulmonary disease, unspecified; N40.0 Benign prostatic hyperplasia without lower urinary tract symptoms; Z66 Do not resuscitate; D72.829 Elevated white blood cell count, unspecified; M19.90 Unspecified osteoarthritis, unspecified site; E78.5 Hyperlipidemia, unspecified; Z95.5 Presence of coronary angioplasty implant and graft; Z79.01 Long term (current) use of anticoagulants; Z89.431 Acquired absence of right foot; Z51.5 Encounter for palliative care
CPT/HCPCS: 70450; 70544; 70551; 71045; 73630; 76937; 80048; 80053; 80061; 82550; 82552; 82948; 83036; 83605; 83735; 84443; 84484; 85025; 85610; 85730; 87040; 87077; 87186; 87205; 90732; 93005; 93880; J1160; J2060; J2270; J2543; J7030; J7040